=== PATIENT | male | born 1940 | race Caucasian/White ===

== ENCOUNTER 2019-08-23 11:48 | Inpatient (IN) | payer OTHER ==
[~2019-08-23] VITALS: Ht 167.6 cm; Wt 92.1 kg
--- NOTE | 2019-08-23 12:15 | NUR ---
PATIENT TO ER #1
--- NOTE | 2019-08-23 12:18 | NUR ---
pt arrives from home w/ c/o "feeling weird". Pt arrives from his Dr. office and was told to home to the ER for further evaluation.
[2019-08-23 12:21] VITALS: BP_SYST 150
--- NOTE | 2019-08-23 12:21 | NUR ---
ER at bedside examining patient.
--- NOTE | 2019-08-23 12:30 | NUR ---
# 20 gauge angiocath placed to RFA. Use of asceptic technique. Opsite placed over site. Blood return noted. Blood for lab drawn from site. Flushed with 10 cc of normal saline. No evidence of infiltration noted. Patient tolerated well.
[2019-08-23 12:48] LABS: BASOPHILS % (AUTO) 0.5 % (0.0-2.0); EOSINOPHILS # (AUTO) 0.1 K/uL (0.0-0.4); HEMOGLOBIN 15.1 g/dL (14.0-18.0); LYMPHOCYTES # (AUTO) 0.8 K/uL (1.0-5.5); LYMPHOCYTES % (AUTO) 11.8 % (20.5-51.5); MEAN CORPUSCULAR HEMOGLOBIN 32 pg (27-31); MEAN CORPUSCULAR HGB CONC 35 % (32-36); MEAN CORPUSCULAR VOLUME 91 fL (79.0-98.0); MONOCYTES # (AUTO) 0.6 K/uL (0.0-1.0); MONOCYTES % (AUTO) 8.1 % (1.7-9.3); NEUTROPHILS # (AUTO) 5.4 K/uL (1.8-7.7); NEUTROPHILS % (AUTO) 78.6 % (40.0-70.0); PLATELET COUNT (AUTO) 192 K/uL (130-430); RED CELL DISTRIBUTION WIDTH 13.7 % (9.0-15.0); WHITE BLOOD COUNT (AUTO) 6.8 K/uL (4.8-10.8)
--- NOTE | 2019-08-23 12:49 | NUR ---
Patient transported to radiology via gurney, accompanied by radiation oncology nurse.
[2019-08-23 12:51] LABS: ANION GAP 8 (5-15); CALCIUM 9.2 mg/dL (8.4-11.0); CHLORIDE 102 mmol/L (98-107); CREATININE 1.11 mg/dL (0.55-1.30); GLUCOSE 221 mg/dL (70-99); POTASSIUM 3.9 mmol/L (3.5-5.1); SODIUM SERUM 137 mmol/L (136-145); UREA NITROGEN, BLOOD 22 mg/dL (8-21)
[2019-08-23 12:55] LABS: PROTHROMBIN TIME 9.8 SECS (9.5-12.5)
[2019-08-23 12:59] LABS: ALANINE AMINOTRANSFERASE 18 U/L (12-78); ALBUMIN 3.6 g/dL (3.4-4.8); ASPARTATE AMINOTRANSFERASE 20 U/L (10-37)
[2019-08-23 13:03] LABS: BILIRUBIN,URINE NEGATIVE (NEGATIVE); BLOOD, URINE NEGATIVE (NEGATIVE); CLARITY/URINE CLEAR (CLEAR); COLOR,URINE YELLOW (YELLOW); GLUCOSE,URINE 2+ (NEGATIVE); KETONES,URINE NEGATIVE (NEGATIVE); LEUKOCYTE ESTERASE ,URINE NEGATIVE (NEGATIVE); NITRITE, URINE NEGATIVE (NEGATIVE); PH,URINE 5.5 (5.0-8.0); PROTEIN URINE TRACE (NEGATIVE); UROBILINOGEN,URINE 0.2 (0.2-1.0)
--- NOTE | 2019-08-23 13:08 | NUR ---
pt returned from CT scan
[2019-08-23 13:09] LABS: BACTERIA,URINE FEW /HPF (None Seen); RBC,URINE 0-3 /HPF (0-3); WBC,URINE 0-3 /HPF (0-3)
[2019-08-23] MEDS ORDERED: ASPIRIN 325 MG TABLET PO ONE (13:15)
--- NOTE | 2019-08-23 14:03 | NUR ---
pt will be admitted under the care of Dr. Allen. Orders received
--- NOTE | 2019-08-23 14:07 | NUR ---
SON TO BRING HOME MEDICATION LIST.
--- NOTE | 2019-08-23 14:14 | NUR ---
Patient will be admitted to care of Dr. Allen. Admitted to tele unit. Will go to room 111-b. Belongings list completed. Complete and up to date summary report printed. SBAR report to be given at bedside with opportunity for questions. bedside report to be given. IV is on the RFA 20g.
--- NOTE | 2019-08-23 14:24 | NUR ---
ADMISSION NOTE Received patient from ER via [facility], received report from Helena BRANDT. Patient admitted with diagnosis of TIA. Patient oriented to hospital routine, call light, toileting and safety-patient verbalized understanding.
[2019-08-23] MEDS: HYDROCHLOROTHIAZIDE 25 MG TABLET (HCTZ) PO SCH (14:30)
[2019-08-23] MEDS ORDERED: cloNIDine HCL 0.1 MG TABLET PO PRN (14:30)
[2019-08-23] MEDS ORDERED: ONDANSETRON HCL 4 MG/2 ML VIAL IVP PRN (14:30)
[2019-08-23] MEDS ORDERED: HYDROcodone/ACETAMIN 10-325 MG TAB PO PRN (14:30)
[2019-08-23] MEDS ORDERED: HYDROcodone/ACETAMIN 5-325 MG TAB (NORCO/ VICODIN) PO PRN (14:30)
[2019-08-23] MEDS ORDERED: ACETAMINOPHEN 325 MG TABLET PO PRN (14:30)
[2019-08-23] MEDS ORDERED: LORazepam 2 MG/ML VIAL IVP PRN (14:30)
[2019-08-23 14:39] VITALS: BP_SYST 141
--- NOTE | 2019-08-23 14:44 | NUR ---
CONSULTATION PAGED/CALLED Reason for Consultation: [] HTN Person Who was Notified: [] LAMAR Consulting Physician: [] DR Kalyn CHAPPELL Rn Surgery Icu Specialty: [] CARDIOLOGY Ordering Physician: [] DR Chanelle CHAPPELL
[2019-08-23 14:46] LABS: CHOLESTEROL 125 mg/dL (<200); HDL CHOLESTEROL 33 mg/dL (>45); LDL CHOLESTEROL 67 mg/dL (<100); TRIGLYCERIDES 118 mg/dL (30-150)
[2019-08-23 16:06] VITALS: BP_SYST 141
[2019-08-23] MEDS ORDERED: HYDROCHLOROTHIAZIDE 25 MG TABLET (HCTZ) PO ONE (16:15)
[2019-08-23 16:58] VITALS: BP_SYST 152
--- NOTE | 2019-08-23 17:30 | NUR ---
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
[2019-08-23] MEDS: INSULIN REGULAR, HUMAN 100 UNITS/ML, 10 ML VIAL (humuLIN R) SUBCUT PRN ×2 (17:45→22:14)
--- NOTE | 2019-08-23 19:01 | NUR ---
CLOSING NOTE: PATIENT IS STABLE, NO SIGN OF DISTRESS, TOLERATING DIET WELL.
--- NOTE | 2019-08-23 19:25 | NUR ---
OPENING NOTE/EDUCATION:SAFETY/REFUSED BED ALARM PATIENT IS RESTING IN BED, AWAKE, A/OX3, FAMILY AT BEDSIDE, EVEN AND UNLABORED BREATHING ON ROOM AIR, IV TO RIGHT FOREARM IS SALINE LOCKED, PATENT/BENIGN, NO COMPLAINTS OF PAIN AT THIS TIME. PATIENT REFUSED BED ALARM DESPITE BEING EDUCATED ON BENEFIT AND PURPOSE OF BED ALARM, WILL CONTINUE TO ENCOURAGE THROUGHOUT SHIFT, PATIENT EDUCATED ON PROPER USE OF CALL LIGHT SYSTEM, PATIENT VERBALIZED UNDERSTANDING AND DEMONSTRATED PROPER USE, PATIENT VERBALIZED HE WILL USE CALL LIGHT FOR ASSISTANCE OUT OF BED, BED LOCKED AND IN LOWEST POSITION, TWO SIDE RAILS UP, CALL LIGHT WITH PATIENT, WILL CONTINUE TO MONITOR.
[2019-08-23 20:00] VITALS: BP_SYST 127
--- NOTE | 2019-08-23 22:12 | NUR ---
BLOOD SUGAR PATIENT'S BLOOD SUGAR IS 367. 10 UNITS OF REGULAR INSULIN INDICATED PER INSULIN SLIDING SCALE. EDUCATED PATIENT ON MEDICATION USES AND POTENTIAL SIDE EFFECTS, PATIENT ABLE TO VERBALIZE UNDERSTANDING, ADMINISTERED MEDICATION PER MD ORDER, PATIENT TOLERATED WELL. SAFETY AND FALL PRECAUTIONS IN PLACE, CALL LIGHT WITH PATIENT, WILL CONTINUE TO MONITOR.
[2019-08-23] MEDS: NORMAL SALINE 5 ML DISP.SYRIN IVF SCH (22:15)
--- NOTE | 2019-08-24 00:16 | NUR ---
SPOKE WITH MD SPOKE WITH DR. GADIEL Torres OVER THE PHONE REGARDING PATIENT'S HOME MEDICATION, MD OKAYED TO CONTINUE HOME EYE DROPS AND PREGABALIN MEDICATIONS, VERIFIED AND CONFIRMED BY READ-BACK, RN TO INPUT.
[2019-08-24 00:19] VITALS: BP_SYST 139
--- NOTE | 2019-08-24 01:52 | NUR ---
CONSULTATION PAGED/CALLED Reason for Consultation: TIA Person Who was Notified:DMITRY Consulting Physician: YORDY Antique Refinisher Specialty: Ordering Physician: Chanelle CHAPPELL
--- NOTE | 2019-08-24 02:25 | NUR ---
RN ROUNDS PATIENT IS RESTING IN BED, EYES CLOSED, TOLERATING ROOM AIR, IV TO RIGHT FOREARM IS SALINE LOCKED, PATENT/BENIGN, NO COMPLAINTS OF PAIN. SAFETY AND FALL PRECAUTIONS IN PLACE, BED LOCKED AND IN LOWEST POSITION, TWO SIDE RAILS UP, CALL LIGHT WITH PATIENT, WILL CONTINUE TO MONITOR.
--- NOTE | 2019-08-24 04:15 | NUR ---
ASSISTED TO RESTROOM ASSISTED PATIENT TO RESTROOM AND BACK TO BED SAFELY, PATIENT VOIDED, REPORTED NO DIFFICULTY, STEADY GAIT, IV SALINE LOCKED INTACT. SAFETY AND FALL PRECAUTIONS IN PLACE, CALL LIGHT WITH PATIENT, WILL CONTINUE TO MONITOR.
[2019-08-24] MEDS: NORMAL SALINE 5 ML DISP.SYRIN IVF SCH ×3 (05:53→21:34)
--- NOTE | 2019-08-24 05:58 | NUR ---
BLOOD SUGAR PATIENT'S BLOOD SUGAR IS 80. NO INSULIN INDICATED PER INSULIN SLIDING SCALE. SAFETY AND FALL PRECAUTIONS IN PLACE, CALL LIGHT WITH PATIENT, WILL CONTINUE TO MONITOR.
--- NOTE | 2019-08-24 06:44 | NUR ---
CLOSING NOTE PATIENT IS RESTING IN BED, AWAKE AT TIMES FORGETFUL, TOLERATING ROOM AIR, IV TO RIGHT FOREARM IS SALINE LOCKED, PATENT/BENIGN, NO COMPLAINTS OF PAIN AT THIS TIME. PATIENT REFUSED BED ALARM DESPITE EDUCATION THROUGHOUT SHIFT, PATIENT HAS A STEADY GAIT. SAFETY AND FALL PRECAUTIONS IN PLACE, BED LOCKED AND IN LOWEST POSITION, TWO SIDE RAILS UP, CALL LIGHT WITH PATIENT, WILL ENDORSE CARE TO DAYSHIFT RN.
[2019-08-24 07:10] LABS: BASOPHILS % (AUTO) 0.6 % (0.0-2.0); EOSINOPHILS # (AUTO) 0.1 K/uL (0.0-0.4); EOSINOPHILS % (AUTO) 1.2 % (0.0-4.0); HEMATOCRIT 40.8 % (36-54); HEMOGLOBIN 14.1 g/dL (14.0-18.0); LYMPHOCYTES % (AUTO) 11.3 % (20.5-51.5); MEAN CORPUSCULAR HEMOGLOBIN 31 pg (27-31); MEAN CORPUSCULAR HGB CONC 35 % (32-36); MEAN CORPUSCULAR VOLUME 91 fL (79.0-98.0); MONOCYTES # (AUTO) 0.7 K/uL (0.0-1.0); MONOCYTES % (AUTO) 7.7 % (1.7-9.3); NEUTROPHILS # (AUTO) 6.7 K/uL (1.8-7.7); NEUTROPHILS % (AUTO) 79.2 % (40.0-70.0); PLATELET COUNT (AUTO) 222 K/uL (130-430); RED BLOOD CELL COUNT(AUTO) 4.49 MIL/uL (4.2-6.2); RED CELL DISTRIBUTION WIDTH 13.4 % (9.0-15.0); WHITE BLOOD COUNT (AUTO) 8.5 K/uL (4.8-10.8)
--- NOTE | 2019-08-24 07:15 | NUR ---
received patient aaox 4. vitals signs stable. afebrile. lungs bilaterally clear. abdomen soft and non distended. has right forearm saline lock #22. dry/intact. no sob nor pain noted. has eye patch on the right eye, s/p cataract surgery. bed low position, alarmed and locked. ambulatory. no dizziness nor headache noted. instructed to call for assistance.
[2019-08-24 07:29] LABS: ANION GAP 8 (5-15); CALCIUM 8.7 mg/dL (8.4-11.0); CHLORIDE 105 mmol/L (98-107); CREATININE 1.02 mg/dL (0.55-1.30); GLUCOSE 87 mg/dL (70-99); PHOSPHORUS 3.3 mg/dL (2.7-4.5); POTASSIUM 3.4 mmol/L (3.5-5.1); SODIUM SERUM 140 mmol/L (136-145); UREA NITROGEN, BLOOD 22 mg/dL (8-21)
[2019-08-24 08:21] VITALS: BP_SYST 127
[2019-08-24] MEDS: PREGABALIN 25 MG CAPSULE (LYRICA) PO SCH ×2 (08:30→21:32)
[2019-08-24] MEDS: HYDROCHLOROTHIAZIDE 25 MG TABLET (HCTZ) PO SCH (08:31)
[2019-08-24] MEDS: ASPIRIN 325 MG TABLET PO SCH (08:31)
--- NOTE | 2019-08-24 08:33 | NUR ---
meds due given. assists on adls
--- NOTE | 2019-08-24 10:03 | NUR ---
CONSULTATION PAGED/CALLED Reason for Consultation: TIA,HTN Person Who was Notified: FRANCA Consulting Physician: Etl Programmer Specialty: Ordering Physician:
[2019-08-24] MEDS ORDERED: GLUCOSE 15 GM GEL (in 37.5 GM TUBE) PO PRN (11:30)
[2019-08-24] MEDS ORDERED: D5W 1,000 ML IV PRN (11:30)
[2019-08-24] MEDS ORDERED: DEXTROSE 50%-WATER 50 ML DISP.SYRIN IVP PRN (11:30)
[2019-08-24 12:10] VITALS: BP_SYST 130
[2019-08-24] MEDS: OFLOXACIN 0.3% OP SCH ×2 (12:46→21:00)
[2019-08-24] MEDS: EYE OP SCH ×2 (12:46→21:00)
[2019-08-24] MEDS: PREDNISOLONE ACETATE 1% OP SCH ×3 (12:46→21:00)
--- NOTE | 2019-08-24 12:50 | NUR ---
eyedrops instilled to right eye as prescribed. complained of pain and redness noted.
[2019-08-24] MEDS: INSULIN REGULAR, HUMAN 100 UNITS/ML, 10 ML VIAL (humuLIN R) SUBCUT PRN ×3 (13:02→22:02)
--- NOTE | 2019-08-24 13:02 | NUR ---
latest bs 246 mg/dl. coverage given.
--- NOTE | 2019-08-24 15:19 | NUR ---
PER [facility] CHARGE NURSE DR SCALES AND DR SANCHEZ CAME AND EVALUATE THE PATIENT.
[2019-08-24 16:10] VITALS: BP_SYST 133
--- NOTE | 2019-08-24 16:10 | NUR ---
PATIENT AGREED TO STAY TILL TOMORROW TO DO CT SCAN OF THE BRAIN WITHOUT CONTRAST, PER DR TA SONG. RATHER THAN MRI WHICH CONTRAINDICATED PER DR SANCHEZ DUE STENT PREVIOUSLY.
--- NOTE | 2019-08-24 17:55 | NUR ---
latest bs 253 mg/dl. coverage given. eating dinner good. has eyedrop on right eye given.
--- NOTE | 2019-08-24 18:23 | NUR ---
still sitting on the bed and watching tv. no pain noted.
--- NOTE | 2019-08-24 19:16 | NUR ---
P.T. NOTES P.T. RONEY COMPLETED; PATIENT MAY AMBU AD REED W/ NURSE Addendum: 08/24/19 at 1917 by Mariah Carmen PT Amended: Links added.
--- NOTE | 2019-08-24 19:34 | NUR ---
endorsed to incoming nurse Lachelle BRANDT
[2019-08-24 20:00] VITALS: BP_SYST 127
--- NOTE | 2019-08-24 22:09 | NUR ---
Patient in bed. No acute distress noted. Patient refused evening eye drops. Will continue to monitor.
[2019-08-25 00:06] VITALS: BP_SYST 124
[2019-08-25] MEDS: NORMAL SALINE 5 ML DISP.SYRIN IVF SCH (05:14)
--- NOTE | 2019-08-25 05:34 | NUR ---
Current assessment unchanged. Will continue to monitor.
[2019-08-25 06:46] LABS: ANION GAP 8 (5-15); CALCIUM 8.7 mg/dL (8.4-11.0); CHLORIDE 101 mmol/L (98-107); CREATININE 1.27 mg/dL (0.55-1.30); GLUCOSE 146 mg/dL (70-99); POTASSIUM 3.5 mmol/L (3.5-5.1); SODIUM SERUM 136 mmol/L (136-145); UREA NITROGEN, BLOOD 25 mg/dL (8-21)
[2019-08-25 06:53] LABS: BASOPHILS % (AUTO) 0.5 % (0.0-2.0); EOSINOPHILS # (AUTO) 0.1 K/uL (0.0-0.4); EOSINOPHILS % (AUTO) 2.5 % (0.0-4.0); HEMOGLOBIN 12.9 g/dL (14.0-18.0); LYMPHOCYTES # (AUTO) 0.9 K/uL (1.0-5.5); LYMPHOCYTES % (AUTO) 17.1 % (20.5-51.5); MEAN CORPUSCULAR HEMOGLOBIN 32 pg (27-31); MEAN CORPUSCULAR HGB CONC 35 % (32-36); MEAN CORPUSCULAR VOLUME 91 fL (79.0-98.0); MONOCYTES # (AUTO) 0.5 K/uL (0.0-1.0); MONOCYTES % (AUTO) 8.9 % (1.7-9.3); NEUTROPHILS # (AUTO) 3.9 K/uL (1.8-7.7); PLATELET COUNT (AUTO) 191 K/uL (130-430); RED BLOOD CELL COUNT(AUTO) 4.09 MIL/uL (4.2-6.2); RED CELL DISTRIBUTION WIDTH 13.2 % (9.0-15.0); WHITE BLOOD COUNT (AUTO) 5.5 K/uL (4.8-10.8)
--- NOTE | 2019-08-25 07:15 | NUR ---
received patient aaox 4. vitals signs stable. afebrile. lungs bilaterally clear. abdomen soft and non distended. no sob nor pain noted. no dizzines noted. bed in low position, alarmed and locked. call lights within reach. will continue to monitor patients status. has iv access on the rt forearm #22. dry and patent.
--- NOTE | 2019-08-25 08:00 | NUR ---
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
[2019-08-25 08:24] VITALS: BP_SYST 117
--- NOTE | 2019-08-25 08:28 | NUR ---
PATIENT CAME BACK FROM RADIOLOGY FOR CT SCAN OF THE BRAIN WITHOUT CONTRAST. VITALS SIGNS STABLE. AFEBRILE. NO PAIN NO SOB NOTED.
[2019-08-25] MEDS: ASPIRIN 325 MG TABLET PO SCH (08:40)
[2019-08-25] MEDS: HYDROCHLOROTHIAZIDE 25 MG TABLET (HCTZ) PO SCH (08:41)
[2019-08-25] MEDS: PREGABALIN 25 MG CAPSULE (LYRICA) PO SCH (08:41)
--- NOTE | 2019-08-25 09:15 | NUR ---
dr zelaya came and said ok to be discharge, if okay with dr henderson.
--- NOTE | 2019-08-25 09:15 | NUR ---
MEDICATION GIVEN. MADE COMFORTABLE.
--- NOTE | 2019-08-25 09:59 | NUR ---
PATIENT SLEEPING AND RESTING.
[2019-08-25] MEDS: INSULIN REGULAR, HUMAN 100 UNITS/ML, 10 ML VIAL (humuLIN R) SUBCUT PRN (11:11)
[2019-08-25] MEDS: PREDNISOLONE ACETATE 1% OP SCH (11:13)
[2019-08-25] MEDS: OFLOXACIN 0.3% OP SCH (11:14)
[2019-08-25] MEDS: EYE OP SCH (11:14)
--- NOTE | 2019-08-25 11:37 | NUR ---
latest bs 316 mg/dl. coverage given. has other medication due given.
[2019-08-25 12:10] VITALS: BP_SYST 127
--- NOTE | 2019-08-25 12:46 | NUR ---
DR CHAPPELL CAME AND MADE ORDERS TO DISCHARGE TODAY.
[2019-08-25 13:54] VITALS: BP_SYST 118
--- NOTE | 2019-08-25 14:15 | NUR ---
PATIENT LEFT IN STABLE CONDITION VIA WHEELCHAIR AND ACCOMPANIED BY RANDALL BRANDT AND SON. ALL BELONGINGS SENT WITH THE PATIENT, INCLUDING EYEDROPS X 2. . 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 [facility] I D BAND REMOVED AND IV ACCESS REMOVED TOO. DISCHARGE INSTRUCTIONS GIVEN AND SIGNED BY THE PATIENT. RETURN FOLLOW UP WITH PCP IN ONE WEEK AND CONTINUE PREVIOUS MEDICATION.
== END 2019-08-25 14:15 | disposition home or self-care (01) | DRG 69 ==
LOC: SED 11:48 → STU 13:57
PROVIDERS: ADMIT Preventive Medicine Preventive Medicine/Occupational Environmental Medicine; ATTEND Preventive Medicine Preventive Medicine/Occupational Environmental Medicine
DX: G45.9 Transient cerebral ischemic attack, unspecified (principal); E11.9 Type 2 diabetes mellitus without complications; I25.10 Atherosclerotic heart disease of native coronary artery without angina pectoris; E78.00 Pure hypercholesterolemia, unspecified; E87.6 Hypokalemia; F40.240 Claustrophobia; I10 Essential (primary) hypertension; R79.89 Other specified abnormal findings of blood chemistry; Z98.41 Cataract extraction status, right eye; Z95.5 Presence of coronary angioplasty implant and graft
CPT/HCPCS: 36415; 70450-TC; 71045; 80048; 80053; 80061; 81000-TC; 82962; 83735-TC; 84100-TC; 84484; 85025; 85610-TC; 85730-TC; 93005; 93306; 93880; 99285; G0378; J1815

== ENCOUNTER 2023-06-23 10:04 | Emergency (ER) | payer OTHER, MEDICARE ==
[~2023-06-23] VITALS: Ht 172.7 cm; Wt 79.4 kg
[2023-06-23 10:26] VITALS: BP_SYST 130; PULSE 113; RESP 16; TEMP 98; O2SAT 97
[2023-06-23] MEDS ORDERED: TRANEXAMIC ACID 1,000 MG/10 ML VIAL IV ONE (11:00)
[2023-06-23] MEDS ORDERED: CEPH-548 PO (11:00)
[2023-06-23 11:49] VITALS: BP_SYST 130; PULSE 113; RESP 16; TEMP 98; O2SAT 97
== END 2023-06-23 11:51 | disposition home or self-care (01) ==
LOC: SED 10:04
DX: R04.0 Epistaxis (principal); E11.9 Type 2 diabetes mellitus without complications; I10 Essential (primary) hypertension; Z79.899 Other long term (current) drug therapy
CPT/HCPCS: 99284; 96374; 30901; J3490

== ENCOUNTER 2023-07-12 14:07 | Inpatient (IN) | payer OTHER, MEDICARE ==
[~2023-07-12] VITALS: Ht 167.6 cm; Wt 92.5 kg
[~2023-07-12 14:07] MED LIST: CEPH-548 PO
[2023-07-12 14:10] VITALS: BP_SYST 137; PULSE 66; RESP 18; TEMP 97.6; O2SAT 94
[2023-07-12 15:10] LABS: BASOPHILS % (AUTO) 0.3 % (0.0-2.0); EOSINOPHILS # (AUTO) 0.1 K/uL (0.0-0.4); EOSINOPHILS % (AUTO) 0.7 % (0.0-4.0); HEMATOCRIT 36.8 % (36-54); HEMOGLOBIN 12.3 g/dL (14.0-18.0); LYMPHOCYTES # (AUTO) 0.4 K/uL (1.0-5.5); MEAN CORPUSCULAR HEMOGLOBIN 30 pg (27-31); MEAN CORPUSCULAR HGB CONC 34 % (32-36); MEAN CORPUSCULAR VOLUME 88 fL (79.0-98.0); MONOCYTES # (AUTO) 0.7 K/uL (0.0-1.0); NEUTROPHILS # (AUTO) 13.3 K/uL (1.8-7.7); PLATELET COUNT (AUTO) 279 K/uL (130-430); RED BLOOD CELL COUNT(AUTO) 4.16 MIL/uL (4.2-6.2); RED CELL DISTRIBUTION WIDTH 14.7 % (9.0-15.0); WHITE BLOOD COUNT (AUTO) 14.7 K/uL (4.8-10.8)
[2023-07-12 15:22] LABS: ANION GAP 7 (5-15); CALCIUM 9.1 mg/dL (8.4-11.0); CARBON DIOXIDE 28 mmol/L (23-29); CHLORIDE 106 mmol/L (98-107); CREATININE 1.62 mg/dL (0.55-1.30); GLUCOSE 188 mg/dL (74-106); POTASSIUM 4.9 mmol/L (3.5-5.1); SODIUM SERUM 141 mmol/L (136-145); UREA NITROGEN, BLOOD 29 mg/dL (8-21)
[2023-07-12 15:27] LABS: ALANINE AMINOTRANSFERASE 34 U/L (12-78); ALBUMIN 3.2 g/dL (3.4-4.8); ASPARTATE AMINOTRANSFERASE 24 U/L (10-37); BILIRUBIN,DIRECT 0.2 mg/dL (0.0-0.3); CHOLESTEROL 83 mg/dL (<200); HDL CHOLESTEROL 33 mg/dL (>45); TOTAL BILIRUBIN 0.7 mg/dL (0.0-1.0); TOTAL PROTEIN, SERUM 7.8 g/dL (6.4-8.3); TRIGLYCERIDES 81 mg/dL (30-150)
[2023-07-12] MEDS: IPRATROPIUM/ALBUTEROL SULFATE 3 ML AMPUL.NEB (DUONEB) INH ONE ×2 (15:30→18:06)
[2023-07-12 15:46] LABS: INR 1.1 (0.80-1.20)
[2023-07-12 16:53] LABS: HEMOGLOBIN A1C 7.03 % (<5.7)
[2023-07-12] MEDS: NACL 0.9% 1,000 ML IV ONE (17:32)
[2023-07-12] MEDS: cefTRIAXone 1 GM IVPB PREMIX 50 ML IV ONE (17:37)
[2023-07-12 17:46] LABS: COVID19 ANTIGEN SOFIA FIA NEGATIVE (NEGATIVE); INFLUENZA TYPE A Negative (NEGATIVE); INFLUENZA TYPE B NEGATIVE (NEGATIVE)
[2023-07-12] MEDS ORDERED: AZITHROMYCIN 500 MG/VIAL (ZITHROMAX) IV ONE ×2 (19:01→19:07)
[2023-07-12] MEDS: AZITHROMYCIN 500 MG in NS 250 ML IV ONE (19:10)
[2023-07-12] MEDS: LORazepam 2 MG/ML VIAL IVP ONE (19:11)
[2023-07-12 19:45] LABS: BLOOD GAS PCO2 29.4 mmHg (32.0-45.0); BLOOD GAS PH 7.425 (7.350-7.450)
[2023-07-12 19:46] LABS: ABG O2 SAT% ESTIMATE 79.9 % (94.0-100.0); ALLEN'S TEST POSITIVE (P); BLOOD GAS BASE EXCESS -4.1 mmol/L (-3.0-3.0); BLOOD GAS HCO3 18.9 mmol/L (21.0-27.0); BLOOD GAS PO2 42.2 mmHg (75.0-100.0)
[2023-07-12] MEDS ORDERED: HYDROcodone/ACETAMIN 5-325 MG TAB (NORCO/ VICODIN) PO PRN (21:45)
[2023-07-12] MEDS ORDERED: HYDROcodone/ACETAMIN 10-325 MG TAB PO PRN (21:45)
[2023-07-12] MEDS ORDERED: NALOXONE HCL 0.4 MG/ML AMP (NARCAN) IVP PRN ×2 (21:45)
[2023-07-12] MEDS ORDERED: ACETAMINOPHEN 325 MG TABLET PO PRN (21:45)
[2023-07-12 23:29] VITALS: BP_SYST 137; PULSE 90; O2SAT 99
[2023-07-12 23:33] VITALS: PULSE 98
[2023-07-12] MEDS: IPRATROPIUM BROM 0.5 MG/2.5 ML VIAL.NEB (ATROVENT) INH SCH (23:41)
[2023-07-12] MEDS: ALBUTEROL SULFATE 0.083% 2.5 MG/3 ML VIAL.NEB INH SCH (23:41)
[2023-07-13] VITALS (26 sets, daily range): BP systolic 82–131; PULSE 73–106; RESP 16–27; TEMP 97–97.7; O2SAT 95–100
[2023-07-13 04:58] LABS: BASOPHILS % (AUTO) 0.1 % (0.0-2.0); HEMATOCRIT 32.6 % (36-54); HEMOGLOBIN 10.8 g/dL (14.0-18.0); LYMPHOCYTES # (AUTO) 0.5 K/uL (1.0-5.5); MEAN CORPUSCULAR HEMOGLOBIN 29 pg (27-31); MEAN CORPUSCULAR HGB CONC 33 % (32-36); MEAN CORPUSCULAR VOLUME 88 fL (79.0-98.0); NEUTROPHILS # (AUTO) 14.9 K/uL (1.8-7.7); NEUTROPHILS % (AUTO) 90.9 % (40.0-70.0); PLATELET COUNT (AUTO) 238 K/uL (130-430); RED CELL DISTRIBUTION WIDTH 14.7 % (9.0-15.0); WHITE BLOOD COUNT (AUTO) 16.4 K/uL (4.8-10.8)
[2023-07-13 05:07] LABS: ANION GAP 10 (5-15); CALCIUM 7.7 mg/dL (8.4-11.0); CARBON DIOXIDE 21 mmol/L (23-29); CHLORIDE 107 mmol/L (98-107); CREATININE 1.84 mg/dL (0.55-1.30); GLUCOSE 207 mg/dL (74-106); PHOSPHORUS 4.2 mg/dL (2.7-4.5); SODIUM SERUM 138 mmol/L (136-145); UREA NITROGEN, BLOOD 36 mg/dL (8-21)
[2023-07-13] MEDS ORDERED: DEXTROSE 50% JECT 50 ML DISP.SYRIN ONE (06:24)
[2023-07-13] MEDS ORDERED: INSULIN REGULAR, HUMAN 10 UNITS/0.1 ML, 3 ML VIAL ONE (06:25)
[2023-07-13] MEDS ORDERED: SODIUM POLYSTYRENE SULFONATE 15 GM/60 ML UDBTL ONE (06:27)
[2023-07-13] MEDS: DEXTROSE 50% JECT 50 ML DISP.SYRIN IVP ONE (06:28)
[2023-07-13] MEDS: INSULIN REGULAR, HUMAN 100 UNITS/ML, 3 ML VIAL IVP ONE (06:35)
[2023-07-13] MEDS: SODIUM POLYSTYRENE SULFONATE 15 GM/60 ML UDBTL RC ONE (06:36)
[2023-07-13] MEDS: NORMAL SALINE 5 ML DISP.SYRIN IVF SCH (06:59)
[2023-07-13 08:50] LABS: BLOOD GAS PCO2 27.1 mmHg (32.0-45.0); BLOOD GAS PH 7.492 (7.350-7.450); BLOOD GAS PO2 132.6 mmHg (75.0-100.0)
[2023-07-13 08:51] LABS: ABG O2 SAT% ESTIMATE 98.9 % (94.0-100.0); ALLEN'S TEST POSITIVE (P); BLOOD GAS BASE EXCESS -1.5 mmol/L (-3.0-3.0); BLOOD GAS HCO3 20.3 mmol/L (21.0-27.0)
[2023-07-13] MEDS ORDERED: INSU100I24 SUBCUT (08:52)
[2023-07-13] MEDS ORDERED: SPIR25TA6 PO (08:52)
[2023-07-13] MEDS ORDERED: AMLO5TAB92 PO (08:52)
[2023-07-13] MEDS ORDERED: LOSA100T24 PO (08:52)
[2023-07-13] MEDS ORDERED: ATOR20TA64 PO (08:52)
[2023-07-13] MEDS ORDERED: NEU300 PO (08:52)
[2023-07-13] MEDS ORDERED: METO-542 PO (08:52)
[2023-07-13] MEDS ORDERED: TAMS0.4C96 PO (08:52)
[2023-07-13] MEDS ORDERED: LACT10SO6 (08:52)
[2023-07-13 09:21] LABS: ANION GAP 9 (5-15); CALCIUM 8.2 mg/dL (8.4-11.0); CARBON DIOXIDE 22 mmol/L (23-29); CHLORIDE 107 mmol/L (98-107); CREATININE 2.12 mg/dL (0.55-1.30); GLUCOSE 122 mg/dL (74-106); POTASSIUM 5.2 mmol/L (3.5-5.1); SODIUM SERUM 138 mmol/L (136-145); UREA NITROGEN, BLOOD 39 mg/dL (8-21)
[2023-07-13] MEDS ORDERED: ACETAMINOPHEN 325 MG TABLET PO PRN (15:30)
[2023-07-13] MEDS: cefTRIAXone 1 GM IVPB PREMIX 50 ML IV SCH (17:13)
[2023-07-13] MEDS: LORazepam 2 MG/ML VIAL IVP PRN (17:59)
[2023-07-13] MEDS: AZITHROMYCIN 500 MG in NS 250 ML IV SCH (19:00)
[2023-07-13 20:07] LABS: ANION GAP 9 (5-15); CALCIUM 8.4 mg/dL (8.4-11.0); CARBON DIOXIDE 21 mmol/L (23-29); CHLORIDE 108 mmol/L (98-107); CREATININE 2.01 mg/dL (0.55-1.30); GLUCOSE 139 mg/dL (74-106); POTASSIUM 4.9 mmol/L (3.5-5.1); SODIUM SERUM 138 mmol/L (136-145); UREA NITROGEN, BLOOD 43 mg/dL (8-21)
[2023-07-14] VITALS (35 sets, daily range): BP systolic 84–132; PULSE 69–107; RESP 14–22; TEMP 97.5–98.2; O2SAT 91–100
[2023-07-14] MEDS: NACL 0.9% 1,000 ML IV SCH (01:23)
[2023-07-14 05:25] LABS: ERYTHROCYTE SEDIMENTATION RATE 30 MM/HR (0-15)
[2023-07-14 05:27] LABS: BASOPHILS % (AUTO) 0.4 % (0.0-2.0); EOSINOPHILS % (AUTO) 0.1 % (0.0-4.0); HEMATOCRIT 32.3 % (36-54); HEMOGLOBIN 10.5 g/dL (14.0-18.0); LYMPHOCYTES # (AUTO) 0.5 K/uL (1.0-5.5); LYMPHOCYTES % (AUTO) 4.4 % (20.5-51.5); MEAN CORPUSCULAR HEMOGLOBIN 29 pg (27-31); MEAN CORPUSCULAR HGB CONC 33 % (32-36); MEAN CORPUSCULAR VOLUME 88 fL (79.0-98.0); MONOCYTES % (AUTO) 8.6 % (1.7-9.3); NEUTROPHILS # (AUTO) 9.6 K/uL (1.8-7.7); NEUTROPHILS % (AUTO) 86.5 % (40.0-70.0); PLATELET COUNT (AUTO) 207 K/uL (130-430); RED BLOOD CELL COUNT(AUTO) 3.67 MIL/uL (4.2-6.2); WHITE BLOOD COUNT (AUTO) 11.1 K/uL (4.8-10.8)
[2023-07-14 05:45] LABS: ALANINE AMINOTRANSFERASE 87 U/L (12-78); ALBUMIN 2.4 g/dL (3.4-4.8); ANION GAP 10 (5-15); ASPARTATE AMINOTRANSFERASE 77 U/L (10-37); CALCIUM 8.1 mg/dL (8.4-11.0); CARBON DIOXIDE 21 mmol/L (23-29); CHLORIDE 107 mmol/L (98-107); CREATININE 2.44 mg/dL (0.55-1.30); GLUCOSE 123 mg/dL (74-106); PHOSPHORUS 5.4 mg/dL (2.7-4.5); SODIUM SERUM 138 mmol/L (136-145); TOTAL BILIRUBIN 0.4 mg/dL (0.0-1.0); TOTAL PROTEIN, SERUM 6.4 g/dL (6.4-8.3); UREA NITROGEN, BLOOD 49 mg/dL (8-21)
[2023-07-14 06:29] LABS: POTASSIUM 6.2 mmol/L (3.5-5.1)
[2023-07-14] MEDS: ASPIRIN 81 MG TAB.CHEW PO SCH (09:00)
[2023-07-14] MEDS: ATORVASTATIN 20 MG TABLET PO SCH (09:00)
[2023-07-14 09:39] LABS: ABG O2 SAT% ESTIMATE 95.5 % (94.0-100.0); BLOOD GAS PCO2 40.5 mmHg (32.0-45.0); BLOOD GAS PO2 86.9 mmHg (75.0-100.0)
[2023-07-14 09:43] LABS: ALLEN'S TEST POSITIVE (P); BLOOD GAS BASE EXCESS -7.8 mmol/L (-3.0-3.0); BLOOD GAS HCO3 18.5 mmol/L (21.0-27.0); BLOOD GAS PH 7.278 (7.350-7.450)
[2023-07-14] MEDS: INSULIN REGULAR, HUMAN 10 UNITS/0.1 ML, 3 ML VIAL IVP ONE (09:44)
[2023-07-14] MEDS: DEXTROSE 50% JECT 50 ML DISP.SYRIN IVP ONE (09:44)
[2023-07-14] MEDS: SODIUM POLYSTYRENE SULFONATE 15 GM/60 ML UDBTL RC ONE (10:06)
[2023-07-14] MEDS: BUMEX 1 MG/4 ML VIAL IVP ONE (11:30)
[2023-07-14] MEDS ORDERED: NOREPINEPHR 8 MG/250 mL NS 250 ML IV PRN (14:45)
[2023-07-14] MEDS: BUMEX 1 MG/4 ML VIAL IVP SCH (21:26)
[2023-07-15] VITALS (29 sets, daily range): BP systolic 116–155; PULSE 91–115; RESP 16–39; TEMP 96.5–98.3; O2SAT 87–100
[2023-07-15 06:49] LABS: ERYTHROCYTE SEDIMENTATION RATE 40 MM/HR (0-15)
[2023-07-15 06:57] LABS: ANION GAP 11 (5-15); CALCIUM 8.8 mg/dL (8.4-11.0); CARBON DIOXIDE 25 mmol/L (23-29); CHLORIDE 108 mmol/L (98-107); CREATININE 2.16 mg/dL (0.55-1.30); GLUCOSE 128 mg/dL (74-106); PHOSPHORUS 4.6 mg/dL (2.7-4.5); POTASSIUM 4.3 mmol/L (3.5-5.1); SODIUM SERUM 144 mmol/L (136-145); UREA NITROGEN, BLOOD 50 mg/dL (8-21)
[2023-07-15 07:00] LABS: BASOPHILS % (AUTO) 0.3 % (0.0-2.0); EOSINOPHILS # (AUTO) 0.1 K/uL (0.0-0.4); EOSINOPHILS % (AUTO) 0.9 % (0.0-4.0); HEMATOCRIT 36.5 % (36-54); HEMOGLOBIN 12.2 g/dL (14.0-18.0); LYMPHOCYTES # (AUTO) 0.4 K/uL (1.0-5.5); LYMPHOCYTES % (AUTO) 3.5 % (20.5-51.5); MEAN CORPUSCULAR HEMOGLOBIN 30 pg (27-31); MEAN CORPUSCULAR HGB CONC 33 % (32-36); MEAN CORPUSCULAR VOLUME 89 fL (79.0-98.0); MONOCYTES # (AUTO) 0.8 K/uL (0.0-1.0); MONOCYTES % (AUTO) 6.5 % (1.7-9.3); NEUTROPHILS # (AUTO) 10.9 K/uL (1.8-7.7); NEUTROPHILS % (AUTO) 88.8 % (40.0-70.0); PLATELET COUNT (AUTO) 253 K/uL (130-430); RED BLOOD CELL COUNT(AUTO) 4.12 MIL/uL (4.2-6.2); RED CELL DISTRIBUTION WIDTH 15.1 % (9.0-15.0); WHITE BLOOD COUNT (AUTO) 12.3 K/uL (4.8-10.8)
[2023-07-15] MEDS: NACL 0.9% 1,000 ML IV SCH (14:53)
[2023-07-15] MEDS: DOXYCYCLINE HYCLATE 100 MG in D5W 100 ML IV SCH (20:35)
[2023-07-15] MEDS: MUPIROCIN 1 GM OIN.PF.APP NS SCH (20:35)
[2023-07-16] VITALS (28 sets, daily range): BP systolic 124–176; PULSE 98–134; RESP 13–26; TEMP 97–97.8; O2SAT 88–100
[2023-07-16] MEDS: ONDANSETRON HCL 4 MG/2 ML VIAL IVP PRN (01:16)
[2023-07-16 06:24] LABS: ERYTHROCYTE SEDIMENTATION RATE 35 MM/HR (0-15)
[2023-07-16 06:36] LABS: BASOPHILS % (AUTO) 0.3 % (0.0-2.0); EOSINOPHILS # (AUTO) 0.1 K/uL (0.0-0.4); EOSINOPHILS % (AUTO) 1.6 % (0.0-4.0); HEMATOCRIT 34.1 % (36-54); HEMOGLOBIN 11.6 g/dL (14.0-18.0); LYMPHOCYTES # (AUTO) 0.3 K/uL (1.0-5.5); LYMPHOCYTES % (AUTO) 4.2 % (20.5-51.5); MEAN CORPUSCULAR HEMOGLOBIN 30 pg (27-31); MEAN CORPUSCULAR HGB CONC 34 % (32-36); MEAN CORPUSCULAR VOLUME 86 fL (79.0-98.0); MONOCYTES # (AUTO) 0.7 K/uL (0.0-1.0); MONOCYTES % (AUTO) 9.5 % (1.7-9.3); NEUTROPHILS # (AUTO) 6.1 K/uL (1.8-7.7); NEUTROPHILS % (AUTO) 84.4 % (40.0-70.0); PLATELET COUNT (AUTO) 247 K/uL (130-430); RED BLOOD CELL COUNT(AUTO) 3.95 MIL/uL (4.2-6.2); RED CELL DISTRIBUTION WIDTH 14.6 % (9.0-15.0); WHITE BLOOD COUNT (AUTO) 7.3 K/uL (4.8-10.8)
[2023-07-16 06:37] LABS: ANION GAP 11 (5-15); CALCIUM 8.4 mg/dL (8.4-11.0); CARBON DIOXIDE 27 mmol/L (23-29); CHLORIDE 109 mmol/L (98-107); CREATININE 1.48 mg/dL (0.55-1.30); GLUCOSE 109 mg/dL (74-106); PHOSPHORUS 3.8 mg/dL (2.7-4.5); POTASSIUM 3.3 mmol/L (3.5-5.1); SODIUM SERUM 147 mmol/L (136-145); UREA NITROGEN, BLOOD 34 mg/dL (8-21)
[2023-07-16] MEDS ORDERED: POTASSIUM CHLORIDE 20 MEQ/PKT PACKET PO ONE (08:45)
[2023-07-16] MEDS ORDERED: KCL 40 mEq in 100 mL (PREMIX) 100 ML IV ONE (09:00)
[2023-07-16] MEDS ORDERED: QUEtiapine FUMARATE 25 MG TABLET PO SCH (09:00)
[2023-07-16] MEDS: MUPIROCIN 2% TOPICAL OINTMENT 22 GM TP SCH (09:07)
[2023-07-16] MEDS: POTASSIUM CHLORIDE 20 mEq in 100 mL (PREMIX) 100 ML x 2 doses IV SCH (09:47)
[2023-07-16 10:09] LABS: INR 1.1 (0.80-1.20); PROTHROMBIN TIME 11.8 SECS (9.5-12.5)
[2023-07-16] MEDS: METOPROLOL TARTRATE 5 MG/5 ML VIAL IVP ONE (10:59)
[2023-07-16] MEDS: AMIODARONE HCL 150 MG in D5W 100 ML IV ONE (13:15)
[2023-07-16] MEDS: AMIODARONE HCL 450 MG in D5W 241 ML IV SCH (13:32)
[2023-07-16] MEDS ORDERED: TPN PERIPHERAL 0.0001 ML, MVI 5 ML, TRACE ELEMENTS 1 ML in PARENTERAL AMINO ACID 8.5 % ... IV SCH (21:00)
[2023-07-16] MEDS ORDERED: *PPN PER PHARMACY XX PRN (21:00)
[2023-07-16] MEDS: MVI IV SCH (23:43)
[2023-07-16] MEDS: [UNRECOGNIZED DRUG - OTHER] IV SCH (23:43)
[2023-07-16] MEDS: TRACE ELEMENTS IV SCH (23:43)
[2023-07-16] MEDS: K PHOS IV SCH (23:43)
[2023-07-16] MEDS: TPN PERIPHERAL IV SCH (23:43)
[2023-07-17] VITALS (22 sets, daily range): BP systolic 125–163; PULSE 98–119; RESP 16–25; TEMP 96.9–98.3; O2SAT 88–99
[2023-07-17] MEDS: INSULIN REGULAR, HUMAN 100 UNITS/ML, 3 ML VIAL (humuLIN R) SUBCUT PRN (00:52)
[2023-07-17 05:02] LABS: ERYTHROCYTE SEDIMENTATION RATE 37 MM/HR (0-15)
[2023-07-17 05:13] LABS: BASOPHILS % (AUTO) 0.4 % (0.0-2.0); EOSINOPHILS # (AUTO) 0.1 K/uL (0.0-0.4); EOSINOPHILS % (AUTO) 1.2 % (0.0-4.0); HEMATOCRIT 33.7 % (36-54); HEMOGLOBIN 11.2 g/dL (14.0-18.0); LYMPHOCYTES # (AUTO) 0.3 K/uL (1.0-5.5); LYMPHOCYTES % (AUTO) 3.6 % (20.5-51.5); MEAN CORPUSCULAR HEMOGLOBIN 29 pg (27-31); MEAN CORPUSCULAR HGB CONC 33 % (32-36); MEAN CORPUSCULAR VOLUME 87 fL (79.0-98.0); MONOCYTES # (AUTO) 0.6 K/uL (0.0-1.0); MONOCYTES % (AUTO) 8.5 % (1.7-9.3); NEUTROPHILS # (AUTO) 6.3 K/uL (1.8-7.7); NEUTROPHILS % (AUTO) 86.3 % (40.0-70.0); PLATELET COUNT (AUTO) 248 K/uL (130-430); RED BLOOD CELL COUNT(AUTO) 3.87 MIL/uL (4.2-6.2); RED CELL DISTRIBUTION WIDTH 14.6 % (9.0-15.0); WHITE BLOOD COUNT (AUTO) 7.3 K/uL (4.8-10.8)
[2023-07-17 05:25] LABS: ALANINE AMINOTRANSFERASE 40 U/L (12-78); ALBUMIN 2.6 g/dL (3.4-4.8); ANION GAP 11 (5-15); ASPARTATE AMINOTRANSFERASE 29 U/L (10-37); CALCIUM 8.5 mg/dL (8.4-11.0); CARBON DIOXIDE 26 mmol/L (23-29); CHLORIDE 109 mmol/L (98-107); CREATININE 1.31 mg/dL (0.55-1.30); GLUCOSE 177 mg/dL (74-106); PHOSPHORUS 2.2 mg/dL (2.7-4.5); POTASSIUM 3.4 mmol/L (3.5-5.1); SODIUM SERUM 146 mmol/L (136-145); TOTAL BILIRUBIN 0.7 mg/dL (0.0-1.0); TOTAL PROTEIN, SERUM 6.6 g/dL (6.4-8.3); TRIGLYCERIDES 59 mg/dL (30-150); UREA NITROGEN, BLOOD 27 mg/dL (8-21)
[2023-07-17] MEDS: BUMEX 1 MG/4 ML VIAL IVP SCH (09:00)
[2023-07-17] MEDS: K PHOS 15 MM in NS 250 ML IV ONE (10:28)
[2023-07-17] MEDS: K PHOS IV SCH (22:24)
[2023-07-17] MEDS: [UNRECOGNIZED DRUG - OTHER] IV SCH (22:24)
[2023-07-17] MEDS: TPN PERIPHERAL IV SCH (22:24)
[2023-07-17] MEDS: POTASSIUM CHLORIDE IV SCH (22:24)
[2023-07-18] VITALS (29 sets, daily range): BP systolic 117–160; PULSE 92–116; RESP 16–31; TEMP 96.5–98.2; O2SAT 92–99
[2023-07-18 05:03] LABS: ERYTHROCYTE SEDIMENTATION RATE 18 MM/HR (0-15)
[2023-07-18 05:14] LABS: BASOPHILS % (AUTO) 0.4 % (0.0-2.0); EOSINOPHILS # (AUTO) 0.1 K/uL (0.0-0.4); EOSINOPHILS % (AUTO) 2.1 % (0.0-4.0); HEMATOCRIT 31.7 % (36-54); HEMOGLOBIN 10.5 g/dL (14.0-18.0); LYMPHOCYTES # (AUTO) 0.3 K/uL (1.0-5.5); LYMPHOCYTES % (AUTO) 6.3 % (20.5-51.5); MEAN CORPUSCULAR HEMOGLOBIN 29 pg (27-31); MEAN CORPUSCULAR HGB CONC 33 % (32-36); MEAN CORPUSCULAR VOLUME 87 fL (79.0-98.0); MONOCYTES # (AUTO) 0.5 K/uL (0.0-1.0); MONOCYTES % (AUTO) 9.3 % (1.7-9.3); NEUTROPHILS # (AUTO) 4.5 K/uL (1.8-7.7); NEUTROPHILS % (AUTO) 81.9 % (40.0-70.0); PLATELET COUNT (AUTO) 214 K/uL (130-430); RED BLOOD CELL COUNT(AUTO) 3.66 MIL/uL (4.2-6.2); RED CELL DISTRIBUTION WIDTH 14.7 % (9.0-15.0); WHITE BLOOD COUNT (AUTO) 5.5 K/uL (4.8-10.8)
[2023-07-18 05:59] LABS: ALANINE AMINOTRANSFERASE 27 U/L (12-78); ALBUMIN 2.3 g/dL (3.4-4.8); ANION GAP 9 (5-15); ASPARTATE AMINOTRANSFERASE 24 U/L (10-37); CALCIUM 8.1 mg/dL (8.4-11.0); CARBON DIOXIDE 29 mmol/L (23-29); CHLORIDE 108 mmol/L (98-107); CREATININE 1.14 mg/dL (0.55-1.30); GLUCOSE 174 mg/dL (74-106); PHOSPHORUS 2.1 mg/dL (2.7-4.5); SODIUM SERUM 146 mmol/L (136-145); TOTAL BILIRUBIN 0.6 mg/dL (0.0-1.0); TOTAL PROTEIN, SERUM 6.3 g/dL (6.4-8.3); UREA NITROGEN, BLOOD 19 mg/dL (8-21)
[2023-07-18] MEDS: CALCIUM GLUC 2 GM/100ML-NACL 100 ML IV ONE (11:26)
[2023-07-18] MEDS: K PHOS 15 MM in NS 250 ML IV ONE (13:31)
[2023-07-18] MEDS: K PHOS IV SCH (20:30)
[2023-07-18] MEDS: TPN PERIPHERAL IV SCH (20:30)
[2023-07-18] MEDS: POTASSIUM CHLORIDE IV SCH (20:30)
[2023-07-18] MEDS: [UNRECOGNIZED DRUG - OTHER] IV SCH (20:30)
[2023-07-19] VITALS (29 sets, daily range): BP systolic 112–157; PULSE 73–133; RESP 15–30; TEMP 97.6–98.8; O2SAT 25–98
[2023-07-19 05:01] LABS: BASOPHILS % (AUTO) 0.6 % (0.0-2.0); EOSINOPHILS # (AUTO) 0.2 K/uL (0.0-0.4); EOSINOPHILS % (AUTO) 2.7 % (0.0-4.0); HEMATOCRIT 34.4 % (36-54); HEMOGLOBIN 11.5 g/dL (14.0-18.0); LYMPHOCYTES # (AUTO) 0.5 K/uL (1.0-5.5); LYMPHOCYTES % (AUTO) 6.5 % (20.5-51.5); MEAN CORPUSCULAR HEMOGLOBIN 29 pg (27-31); MEAN CORPUSCULAR HGB CONC 34 % (32-36); MEAN CORPUSCULAR VOLUME 87 fL (79.0-98.0); MONOCYTES # (AUTO) 0.6 K/uL (0.0-1.0); MONOCYTES % (AUTO) 8.7 % (1.7-9.3); NEUTROPHILS # (AUTO) 5.7 K/uL (1.8-7.7); NEUTROPHILS % (AUTO) 81.5 % (40.0-70.0); PLATELET COUNT (AUTO) 268 K/uL (130-430); RED BLOOD CELL COUNT(AUTO) 3.96 MIL/uL (4.2-6.2); RED CELL DISTRIBUTION WIDTH 14.1 % (9.0-15.0)
[2023-07-19 05:12] LABS: ALANINE AMINOTRANSFERASE 29 U/L (12-78); ALBUMIN 2.6 g/dL (3.4-4.8); ANION GAP 11 (5-15); ASPARTATE AMINOTRANSFERASE 22 U/L (10-37); CALCIUM 8.3 mg/dL (8.4-11.0); CARBON DIOXIDE 28 mmol/L (23-29); CHLORIDE 106 mmol/L (98-107); CREATININE 1.28 mg/dL (0.55-1.30); GLUCOSE 76 mg/dL (74-106); PHOSPHORUS 2.9 mg/dL (2.7-4.5); POTASSIUM 3.2 mmol/L (3.5-5.1); SODIUM SERUM 145 mmol/L (136-145); TOTAL BILIRUBIN 0.7 mg/dL (0.0-1.0); UREA NITROGEN, BLOOD 16 mg/dL (8-21)
[2023-07-19] MEDS: HALOPERIDOL LACTATE 5 MG/ML VIAL ONE (05:31)
[2023-07-19] MEDS: HALOPERIDOL LACTATE 5 MG/ML VIAL IVP PRN ×2 (05:32→20:34)
[2023-07-19 08:36] LABS: ERYTHROCYTE SEDIMENTATION RATE 32 MM/HR (0-15)
[2023-07-19] MEDS ORDERED: MAGNESIUM SULFATE 1 GM/2 ML VIAL IVP ONE (09:00)
[2023-07-19] MEDS: MAGNESIUM SULFATE 50 ML IV ONE (09:48)
[2023-07-19] MEDS: KCL 40 mEq in 100 mL (PREMIX) 100 ML IV ONE (09:50)
[2023-07-19] MEDS: POTASSIUM CHLORIDE IV SCH (20:03)
[2023-07-19] MEDS: K PHOS IV SCH (20:03)
[2023-07-19] MEDS: [UNRECOGNIZED DRUG - OTHER] IV SCH (20:03)
[2023-07-19] MEDS: TPN PERIPHERAL IV SCH (20:03)
[2023-07-19] MEDS: DIPHENHYDRAMINE INJ 50 MG/ML VIAL IVP PRN (22:21)
[2023-07-20] VITALS (29 sets, daily range): BP systolic 105–151; PULSE 74–100; RESP 12–24; TEMP 97.5–98.6; O2SAT 87–100
[2023-07-20] MEDS: AMIODARONE HCL 450 MG/9 ML VIAL IV ONE (00:52)
[2023-07-20 05:32] LABS: ERYTHROCYTE SEDIMENTATION RATE 15 MM/HR (0-15)
[2023-07-20 05:43] LABS: BASOPHILS % (AUTO) 0.5 % (0.0-2.0); EOSINOPHILS # (AUTO) 0.2 K/uL (0.0-0.4); EOSINOPHILS % (AUTO) 2.4 % (0.0-4.0); HEMATOCRIT 33.3 % (36-54); HEMOGLOBIN 11.1 g/dL (14.0-18.0); LYMPHOCYTES # (AUTO) 0.5 K/uL (1.0-5.5); LYMPHOCYTES % (AUTO) 6.3 % (20.5-51.5); MEAN CORPUSCULAR HEMOGLOBIN 29 pg (27-31); MEAN CORPUSCULAR HGB CONC 33 % (32-36); MEAN CORPUSCULAR VOLUME 86 fL (79.0-98.0); MONOCYTES # (AUTO) 0.5 K/uL (0.0-1.0); MONOCYTES % (AUTO) 7.1 % (1.7-9.3); NEUTROPHILS # (AUTO) 6.2 K/uL (1.8-7.7); NEUTROPHILS % (AUTO) 83.7 % (40.0-70.0); PLATELET COUNT (AUTO) 212 K/uL (130-430); RED BLOOD CELL COUNT(AUTO) 3.89 MIL/uL (4.2-6.2); RED CELL DISTRIBUTION WIDTH 14.9 % (9.0-15.0); WHITE BLOOD COUNT (AUTO) 7.4 K/uL (4.8-10.8)
[2023-07-20 06:02] LABS: ALANINE AMINOTRANSFERASE 25 U/L (12-78); ALBUMIN 2.5 g/dL (3.4-4.8); ANION GAP 9 (5-15); ASPARTATE AMINOTRANSFERASE 19 U/L (10-37); CALCIUM 8.3 mg/dL (8.4-11.0); CARBON DIOXIDE 28 mmol/L (23-29); CHLORIDE 104 mmol/L (98-107); CREATININE 1.33 mg/dL (0.55-1.30); GLUCOSE 242 mg/dL (74-106); POTASSIUM 3.7 mmol/L (3.5-5.1); SODIUM SERUM 141 mmol/L (136-145); TOTAL BILIRUBIN 0.6 mg/dL (0.0-1.0); TOTAL PROTEIN, SERUM 6.7 g/dL (6.4-8.3); UREA NITROGEN, BLOOD 20 mg/dL (8-21)
[2023-07-20] MEDS: K PHOS IV SCH (20:24)
[2023-07-20] MEDS: [UNRECOGNIZED DRUG - OTHER] IV SCH (20:24)
[2023-07-20] MEDS: TPN PERIPHERAL IV SCH (20:24)
[2023-07-20] MEDS: POTASSIUM CHLORIDE IV SCH (20:24)
[2023-07-21] VITALS (31 sets, daily range): BP systolic 109–171; PULSE 78–110; RESP 16–35; TEMP 97.2–98.2; O2SAT 84–98
[2023-07-21 05:35] LABS: ERYTHROCYTE SEDIMENTATION RATE 14 MM/HR (0-15)
[2023-07-21 05:49] LABS: BASOPHILS % (AUTO) 0.3 % (0.0-2.0); EOSINOPHILS # (AUTO) 0.1 K/uL (0.0-0.4); EOSINOPHILS % (AUTO) 0.8 % (0.0-4.0); HEMATOCRIT 35.6 % (36-54); HEMOGLOBIN 11.6 g/dL (14.0-18.0); LYMPHOCYTES # (AUTO) 0.2 K/uL (1.0-5.5); LYMPHOCYTES % (AUTO) 1.7 % (20.5-51.5); MEAN CORPUSCULAR HEMOGLOBIN 28 pg (27-31); MEAN CORPUSCULAR HGB CONC 33 % (32-36); MEAN CORPUSCULAR VOLUME 87 fL (79.0-98.0); MONOCYTES % (AUTO) 6.8 % (1.7-9.3); NEUTROPHILS # (AUTO) 12.9 K/uL (1.8-7.7); NEUTROPHILS % (AUTO) 90.4 % (40.0-70.0); PLATELET COUNT (AUTO) 287 K/uL (130-430); RED BLOOD CELL COUNT(AUTO) 4.11 MIL/uL (4.2-6.2); RED CELL DISTRIBUTION WIDTH 14.7 % (9.0-15.0); WHITE BLOOD COUNT (AUTO) 14.3 K/uL (4.8-10.8)
[2023-07-21 06:18] LABS: ALANINE AMINOTRANSFERASE 26 U/L (12-78); ALBUMIN 2.6 g/dL (3.4-4.8); ANION GAP 11 (5-15); ASPARTATE AMINOTRANSFERASE 23 U/L (10-37); CALCIUM 8.6 mg/dL (8.4-11.0); CARBON DIOXIDE 26 mmol/L (23-29); CHLORIDE 102 mmol/L (98-107); CREATININE 1.49 mg/dL (0.55-1.30); GLUCOSE 200 mg/dL (74-106); PHOSPHORUS 2.8 mg/dL (2.7-4.5); SODIUM SERUM 139 mmol/L (136-145); TOTAL BILIRUBIN 0.9 mg/dL (0.0-1.0); UREA NITROGEN, BLOOD 26 mg/dL (8-21)
[2023-07-21] MEDS: AMIODARONE HCL 200 MG TABLET PO ONE (13:20)
[2023-07-21] MEDS: AMIODARONE HCL 200 MG TABLET PO SCH (20:15)
[2023-07-21] MEDS: METOPROLOL TARTRATE 25 MG TABLET PO SCH (20:16)
[2023-07-21] MEDS: POTASSIUM CHLORIDE IV SCH (21:26)
[2023-07-21] MEDS: TPN PERIPHERAL IV SCH (21:26)
[2023-07-21] MEDS: SODIUM CHLORIDE IV SCH (21:26)
[2023-07-21] MEDS: [UNRECOGNIZED DRUG - OTHER] IV SCH (21:26)
[2023-07-21] MEDS: traZODone HCL 50 MG TABLET (DESYREL) PO PRN (22:02)
[2023-07-21] MEDS: traZODone HCL 50 MG TABLET (DESYREL) ONE (22:02)
[2023-07-22] VITALS (30 sets, daily range): BP systolic 92–165; PULSE 68–96; RESP 18–29; TEMP 97.6–98.4; O2SAT 38–99
[2023-07-22 06:41] LABS: BASOPHILS % (AUTO) 0.3 % (0.0-2.0); EOSINOPHILS # (AUTO) 0.1 K/uL (0.0-0.4); EOSINOPHILS % (AUTO) 1.1 % (0.0-4.0); HEMATOCRIT 34.5 % (36-54); HEMOGLOBIN 11.3 g/dL (14.0-18.0); LYMPHOCYTES # (AUTO) 0.5 K/uL (1.0-5.5); LYMPHOCYTES % (AUTO) 6.3 % (20.5-51.5); MEAN CORPUSCULAR HEMOGLOBIN 28 pg (27-31); MEAN CORPUSCULAR HGB CONC 33 % (32-36); MEAN CORPUSCULAR VOLUME 86 fL (79.0-98.0); MONOCYTES # (AUTO) 0.7 K/uL (0.0-1.0); MONOCYTES % (AUTO) 7.6 % (1.7-9.3); NEUTROPHILS # (AUTO) 7.2 K/uL (1.8-7.7); NEUTROPHILS % (AUTO) 84.7 % (40.0-70.0); PLATELET COUNT (AUTO) 203 K/uL (130-430); RED BLOOD CELL COUNT(AUTO) 3.99 MIL/uL (4.2-6.2); RED CELL DISTRIBUTION WIDTH 14.9 % (9.0-15.0); WHITE BLOOD COUNT (AUTO) 8.6 K/uL (4.8-10.8)
[2023-07-22 07:07] LABS: ANION GAP 10 (5-15); CARBON DIOXIDE 25 mmol/L (23-29); CHLORIDE 101 mmol/L (98-107); CREATININE 1.55 mg/dL (0.55-1.30); GLUCOSE 290 mg/dL (74-106); PHOSPHORUS 3.9 mg/dL (2.7-4.5); POTASSIUM 4.4 mmol/L (3.5-5.1); SODIUM SERUM 136 mmol/L (136-145); UREA NITROGEN, BLOOD 34 mg/dL (8-21)
[2023-07-22 08:05] LABS: ERYTHROCYTE SEDIMENTATION RATE 44 MM/HR (0-15)
[2023-07-22] MEDS: ASPIRIN 81 MG TAB.CHEW PO SCH (08:36)
[2023-07-22] MEDS: ATORVASTATIN 20 MG TABLET PO SCH (08:36)
[2023-07-22] MEDS: FUROSEMIDE 20 MG/2 ML VIAL IVP ONE (18:21)
[2023-07-22] MEDS: SODIUM CHLORIDE IV SCH (21:39)
[2023-07-22] MEDS: POTASSIUM CHLORIDE IV SCH (21:39)
[2023-07-22] MEDS: TPN PERIPHERAL IV SCH (21:39)
[2023-07-22] MEDS: [UNRECOGNIZED DRUG - OTHER] IV SCH (21:39)
[2023-07-23] VITALS (33 sets, daily range): BP systolic 85–156; PULSE 59–101; RESP 12–32; TEMP 97.4–98.1; O2SAT 81–100
[2023-07-23 00:29] LABS: BLOOD GAS HCO3 20.4 mmol/L (21.0-27.0); BLOOD GAS PCO2 33.2 mmHg (32.0-45.0); BLOOD GAS PH 7.406 (7.350-7.450); BLOOD GAS PO2 54.2 mmHg (75.0-100.0)
[2023-07-23 00:30] LABS: ABG O2 SAT% ESTIMATE 88.7 % (94.0-100.0); BLOOD GAS BASE EXCESS -3.4 mmol/L (-3.0-3.0)
[2023-07-23] MEDS: DEXMEDETOMIDINE HCL 200 MCG/2 ML VIAL IV ONE ×2 (01:59→07:18)
[2023-07-23 07:01] LABS: BASOPHILS % (AUTO) 0.6 % (0.0-2.0); EOSINOPHILS # (AUTO) 0.1 K/uL (0.0-0.4); EOSINOPHILS % (AUTO) 0.9 % (0.0-4.0); HEMOGLOBIN 10.5 g/dL (14.0-18.0); LYMPHOCYTES # (AUTO) 0.4 K/uL (1.0-5.5); LYMPHOCYTES % (AUTO) 6.5 % (20.5-51.5); MEAN CORPUSCULAR HEMOGLOBIN 28 pg (27-31); MEAN CORPUSCULAR HGB CONC 33 % (32-36); MEAN CORPUSCULAR VOLUME 86 fL (79.0-98.0); MONOCYTES # (AUTO) 0.6 K/uL (0.0-1.0); MONOCYTES % (AUTO) 9.4 % (1.7-9.3); NEUTROPHILS # (AUTO) 5.4 K/uL (1.8-7.7); NEUTROPHILS % (AUTO) 82.6 % (40.0-70.0); PLATELET COUNT (AUTO) 196 K/uL (130-430); RED BLOOD CELL COUNT(AUTO) 3.72 MIL/uL (4.2-6.2); RED CELL DISTRIBUTION WIDTH 14.9 % (9.0-15.0); WHITE BLOOD COUNT (AUTO) 6.5 K/uL (4.8-10.8)
[2023-07-23 07:29] LABS: ALANINE AMINOTRANSFERASE 40 U/L (12-78); ALBUMIN 2.3 g/dL (3.4-4.8); ANION GAP 9 (5-15); ASPARTATE AMINOTRANSFERASE 36 U/L (10-37); CALCIUM 8.5 mg/dL (8.4-11.0); CARBON DIOXIDE 24 mmol/L (23-29); CHLORIDE 101 mmol/L (98-107); CREATININE 1.68 mg/dL (0.55-1.30); GLUCOSE 299 mg/dL (74-106); PHOSPHORUS 4.2 mg/dL (2.7-4.5); SODIUM SERUM 134 mmol/L (136-145); TOTAL BILIRUBIN 0.5 mg/dL (0.0-1.0); UREA NITROGEN, BLOOD 48 mg/dL (8-21)
[2023-07-23 08:34] LABS: ERYTHROCYTE SEDIMENTATION RATE 22 MM/HR (0-15)
[2023-07-23] MEDS: FUROSEMIDE 20 MG/2 ML VIAL IVP SCH (09:00)
[2023-07-23] MEDS: TPN PERIPHERAL IV SCH (21:20)
[2023-07-23] MEDS: POTASSIUM CHLORIDE IV SCH (21:20)
[2023-07-23] MEDS: [UNRECOGNIZED DRUG - OTHER] IV SCH (21:20)
[2023-07-23] MEDS: SODIUM CHLORIDE IV SCH (21:20)
[2023-07-24] VITALS (35 sets, daily range): BP systolic 90–144; PULSE 58–85; RESP 18–31; TEMP 97.3–98.4; O2SAT 69–100
[2023-07-24 06:17] LABS: BASOPHILS % (AUTO) 0.4 % (0.0-2.0); EOSINOPHILS % (AUTO) 0.2 % (0.0-4.0); HEMATOCRIT 33.7 % (36-54); LYMPHOCYTES # (AUTO) 0.4 K/uL (1.0-5.5); LYMPHOCYTES % (AUTO) 3.6 % (20.5-51.5); MEAN CORPUSCULAR HEMOGLOBIN 29 pg (27-31); MEAN CORPUSCULAR HGB CONC 33 % (32-36); MEAN CORPUSCULAR VOLUME 87 fL (79.0-98.0); MONOCYTES # (AUTO) 1.2 K/uL (0.0-1.0); MONOCYTES % (AUTO) 10.5 % (1.7-9.3); NEUTROPHILS # (AUTO) 9.4 K/uL (1.8-7.7); NEUTROPHILS % (AUTO) 85.3 % (40.0-70.0); PLATELET COUNT (AUTO) 288 K/uL (130-430); RED BLOOD CELL COUNT(AUTO) 3.88 MIL/uL (4.2-6.2); RED CELL DISTRIBUTION WIDTH 15.3 % (9.0-15.0)
[2023-07-24 06:25] LABS: ALANINE AMINOTRANSFERASE 118 U/L (12-78); ALBUMIN 2.4 g/dL (3.4-4.8); ANION GAP 8 (5-15); ASPARTATE AMINOTRANSFERASE 102 U/L (10-37); CALCIUM 8.1 mg/dL (8.4-11.0); CARBON DIOXIDE 20 mmol/L (23-29); CHLORIDE 100 mmol/L (98-107); CREATININE 2.39 mg/dL (0.55-1.30); GLUCOSE 272 mg/dL (74-106); SODIUM SERUM 128 mmol/L (136-145); TOTAL BILIRUBIN 0.8 mg/dL (0.0-1.0); TOTAL PROTEIN, SERUM 6.3 g/dL (6.4-8.3); UREA NITROGEN, BLOOD 70 mg/dL (8-21)
[2023-07-24] MEDS ORDERED: FUROSEMIDE 20 MG/2 ML VIAL ONE (08:51)
[2023-07-24 15:44] LABS: ANION GAP 14 (5-15); CALCIUM 8.8 mg/dL (8.4-11.0); CARBON DIOXIDE 18 mmol/L (23-29); CHLORIDE 97 mmol/L (98-107); CREATININE 2.86 mg/dL (0.55-1.30); GLUCOSE 264 mg/dL (74-106); POTASSIUM 5.6 mmol/L (3.5-5.1); SODIUM SERUM 129 mmol/L (136-145); UREA NITROGEN, BLOOD 83 mg/dL (8-21)
[2023-07-24] MEDS: SODIUM BICARBONATE 8.4% JECT 50 MEQ/50 ML SYRINGE ONE (17:01)
[2023-07-24] MEDS: SODIUM BICARBONATE 8.4% JECT 50 MEQ/50 ML SYRINGE IVP ONE (17:02)
[2023-07-24] MEDS: SODIUM ZIRCONIUM CYCLOSILICATE 10 GM POWD.PACK PO ONE (17:42)
[2023-07-24] MEDS: BUMEX 1 MG/4 ML VIAL IVP ONE (17:42)
[2023-07-24] MEDS: [UNRECOGNIZED DRUG - OTHER] IV SCH (20:39)
[2023-07-24] MEDS: MAGNESIUM SULFATE IV SCH (20:39)
[2023-07-24] MEDS: MVI IV SCH (20:39)
[2023-07-24] MEDS: SODIUM CHLORIDE IV SCH (20:39)
[2023-07-24] MEDS: TPN PERIPHERAL IV SCH (20:39)
[2023-07-24] MEDS: LINEZOLID 300 ML IV SCH (20:40)
[2023-07-25] VITALS (30 sets, daily range): BP systolic 110–140; PULSE 48–68; RESP 13–30; TEMP 97.5–98; O2SAT 91–100
[2023-07-25 05:54] LABS: BASOPHILS # (AUTO) 0.1 K/uL (0.0-0.2); BASOPHILS % (AUTO) 0.6 % (0.0-2.0); EOSINOPHILS # (AUTO) 0.1 K/uL (0.0-0.4); EOSINOPHILS % (AUTO) 0.8 % (0.0-4.0); HEMATOCRIT 34.8 % (36-54); HEMOGLOBIN 11.5 g/dL (14.0-18.0); LYMPHOCYTES # (AUTO) 0.4 K/uL (1.0-5.5); LYMPHOCYTES % (AUTO) 4.5 % (20.5-51.5); MEAN CORPUSCULAR HEMOGLOBIN 28 pg (27-31); MEAN CORPUSCULAR HGB CONC 33 % (32-36); MEAN CORPUSCULAR VOLUME 86 fL (79.0-98.0); MONOCYTES % (AUTO) 9.9 % (1.7-9.3); NEUTROPHILS # (AUTO) 8.1 K/uL (1.8-7.7); NEUTROPHILS % (AUTO) 84.2 % (40.0-70.0); PLATELET COUNT (AUTO) 247 K/uL (130-430); RED BLOOD CELL COUNT(AUTO) 4.06 MIL/uL (4.2-6.2); RED CELL DISTRIBUTION WIDTH 15.2 % (9.0-15.0); WHITE BLOOD COUNT (AUTO) 9.7 K/uL (4.8-10.8)
[2023-07-25 06:23] LABS: ALANINE AMINOTRANSFERASE 286 U/L (12-78); ALBUMIN 2.3 g/dL (3.4-4.8); ANION GAP 10 (5-15); CALCIUM 8.5 mg/dL (8.4-11.0); CARBON DIOXIDE 24 mmol/L (23-29); CHLORIDE 95 mmol/L (98-107); CREATININE 2.64 mg/dL (0.55-1.30); GLUCOSE 267 mg/dL (74-106); POTASSIUM 3.8 mmol/L (3.5-5.1); SODIUM SERUM 129 mmol/L (136-145); TOTAL BILIRUBIN 0.6 mg/dL (0.0-1.0); TOTAL PROTEIN, SERUM 6.1 g/dL (6.4-8.3); UREA NITROGEN, BLOOD 80 mg/dL (8-21)
[2023-07-25 06:57] LABS: ASPARTATE AMINOTRANSFERASE 162 U/L (10-37)
[2023-07-25] MEDS: POTASSIUM CHLORIDE IV SCH (20:26)
[2023-07-25] MEDS: [UNRECOGNIZED DRUG - OTHER] IV SCH (20:26)
[2023-07-25] MEDS: SODIUM CHLORIDE IV SCH (20:26)
[2023-07-25] MEDS: TPN PERIPHERAL IV SCH (20:26)
[2023-07-26] VITALS (29 sets, daily range): BP systolic 109–160; PULSE 17–75; RESP 13–23; TEMP 97.6–98; O2SAT 83–100
[2023-07-26 05:52] LABS: ERYTHROCYTE SEDIMENTATION RATE 1 MM/HR (0-15)
[2023-07-26 06:09] LABS: BASOPHILS % (AUTO) 0.4 % (0.0-2.0); EOSINOPHILS # (AUTO) 0.2 K/uL (0.0-0.4); EOSINOPHILS % (AUTO) 2.2 % (0.0-4.0); HEMATOCRIT 33.2 % (36-54); LYMPHOCYTES # (AUTO) 0.3 K/uL (1.0-5.5); LYMPHOCYTES % (AUTO) 3.3 % (20.5-51.5); MEAN CORPUSCULAR HEMOGLOBIN 28 pg (27-31); MEAN CORPUSCULAR HGB CONC 33 % (32-36); MEAN CORPUSCULAR VOLUME 86 fL (79.0-98.0); MONOCYTES # (AUTO) 0.6 K/uL (0.0-1.0); MONOCYTES % (AUTO) 8.3 % (1.7-9.3); NEUTROPHILS # (AUTO) 6.6 K/uL (1.8-7.7); NEUTROPHILS % (AUTO) 85.8 % (40.0-70.0); PLATELET COUNT (AUTO) 216 K/uL (130-430); RED BLOOD CELL COUNT(AUTO) 3.88 MIL/uL (4.2-6.2); RED CELL DISTRIBUTION WIDTH 14.9 % (9.0-15.0); WHITE BLOOD COUNT (AUTO) 7.7 K/uL (4.8-10.8)
[2023-07-26 07:00] LABS: ALANINE AMINOTRANSFERASE 215 U/L (12-78); ALBUMIN 2.1 g/dL (3.4-4.8); ANION GAP 7 (5-15); CALCIUM 8.2 mg/dL (8.4-11.0); CARBON DIOXIDE 27 mmol/L (23-29); CHLORIDE 97 mmol/L (98-107); GLUCOSE 271 mg/dL (74-106); SODIUM SERUM 131 mmol/L (136-145); TOTAL BILIRUBIN 0.5 mg/dL (0.0-1.0); TOTAL PROTEIN, SERUM 5.7 g/dL (6.4-8.3); UREA NITROGEN, BLOOD 75 mg/dL (8-21)
[2023-07-26 07:17] LABS: ASPARTATE AMINOTRANSFERASE 71 U/L (10-37)
[2023-07-26] MEDS ORDERED: KCL 20 mEq in NS 1000 mL 1,000 ML IV SCH (11:30)
[2023-07-26] MEDS: POTASSIUM CHLORIDE 20 MEQ/PKT PACKET PO ONE (12:34)
[2023-07-26] MEDS: [UNRECOGNIZED DRUG - OTHER] IV SCH (20:29)
[2023-07-26] MEDS: POTASSIUM CHLORIDE IV SCH (20:29)
[2023-07-26] MEDS: TPN PERIPHERAL IV SCH (20:29)
[2023-07-26] MEDS: SODIUM CHLORIDE IV SCH (20:29)
[2023-07-27] VITALS (31 sets, daily range): BP systolic 112–169; PULSE 62–93; RESP 16–28; TEMP 97.2–97.8; O2SAT 71–99
[2023-07-27] MEDS: HALOPERIDOL LACTATE 5 MG/ML VIAL IM PRN (02:58)
[2023-07-27 05:20] LABS: ERYTHROCYTE SEDIMENTATION RATE 2 MM/HR (0-15)
[2023-07-27 05:26] LABS: BASOPHILS % (AUTO) 0.4 % (0.0-2.0); EOSINOPHILS # (AUTO) 0.1 K/uL (0.0-0.4); EOSINOPHILS % (AUTO) 1.6 % (0.0-4.0); HEMATOCRIT 36.4 % (36-54); LYMPHOCYTES # (AUTO) 0.3 K/uL (1.0-5.5); LYMPHOCYTES % (AUTO) 3.6 % (20.5-51.5); MEAN CORPUSCULAR HEMOGLOBIN 28 pg (27-31); MEAN CORPUSCULAR HGB CONC 33 % (32-36); MEAN CORPUSCULAR VOLUME 86 fL (79.0-98.0); MONOCYTES # (AUTO) 0.7 K/uL (0.0-1.0); MONOCYTES % (AUTO) 8.4 % (1.7-9.3); NEUTROPHILS # (AUTO) 7.2 K/uL (1.8-7.7); PLATELET COUNT (AUTO) 277 K/uL (130-430); RED BLOOD CELL COUNT(AUTO) 4.26 MIL/uL (4.2-6.2); RED CELL DISTRIBUTION WIDTH 15.3 % (9.0-15.0); WHITE BLOOD COUNT (AUTO) 8.4 K/uL (4.8-10.8)
[2023-07-27 05:56] LABS: ALANINE AMINOTRANSFERASE 218 U/L (12-78); ALBUMIN 2.3 g/dL (3.4-4.8); ANION GAP 8 (5-15); ASPARTATE AMINOTRANSFERASE 77 U/L (10-37); CALCIUM 8.3 mg/dL (8.4-11.0); CARBON DIOXIDE 26 mmol/L (23-29); CHLORIDE 100 mmol/L (98-107); CREATININE 2.17 mg/dL (0.55-1.30); GLUCOSE 237 mg/dL (74-106); PHOSPHORUS 2.9 mg/dL (2.7-4.5); POTASSIUM 3.2 mmol/L (3.5-5.1); SODIUM SERUM 134 mmol/L (136-145); TOTAL BILIRUBIN 0.6 mg/dL (0.0-1.0); TOTAL PROTEIN, SERUM 6.3 g/dL (6.4-8.3); UREA NITROGEN, BLOOD 69 mg/dL (8-21)
[2023-07-27] MEDS ORDERED: POTASSIUM CHLORIDE IV SCH (12:00)
[2023-07-27] MEDS ORDERED: SODIUM CHLORIDE IV SCH (12:00)
[2023-07-27] MEDS ORDERED: [UNRECOGNIZED DRUG - OTHER] IV SCH (12:00)
[2023-07-27] MEDS ORDERED: TPN PERIPHERAL IV SCH (12:00)
[2023-07-27] MEDS: KCL 40 mEq in 100 mL (PREMIX) 100 ML IV ONE (14:18)
[2023-07-27] MEDS: TPN PERIPHERAL IV SCH (21:19)
[2023-07-27] MEDS: SODIUM CHLORIDE IV SCH (21:19)
[2023-07-27] MEDS: POTASSIUM CHLORIDE IV SCH (21:19)
[2023-07-27] MEDS: [UNRECOGNIZED DRUG - OTHER] IV SCH (21:19)
[2023-07-28] VITALS (32 sets, daily range): BP systolic 136–177; PULSE 62–146; RESP 18–26; TEMP 97–97.9; O2SAT 18–100
[2023-07-28 05:37] LABS: ERYTHROCYTE SEDIMENTATION RATE 5 MM/HR (0-15)
[2023-07-28 05:44] LABS: BASOPHILS % (AUTO) 0.4 % (0.0-2.0); EOSINOPHILS # (AUTO) 0.1 K/uL (0.0-0.4); EOSINOPHILS % (AUTO) 0.7 % (0.0-4.0); HEMOGLOBIN 11.6 g/dL (14.0-18.0); LYMPHOCYTES # (AUTO) 0.3 K/uL (1.0-5.5); LYMPHOCYTES % (AUTO) 3.8 % (20.5-51.5); MEAN CORPUSCULAR HEMOGLOBIN 29 pg (27-31); MEAN CORPUSCULAR HGB CONC 33 % (32-36); MEAN CORPUSCULAR VOLUME 86 fL (79.0-98.0); MONOCYTES # (AUTO) 0.8 K/uL (0.0-1.0); NEUTROPHILS # (AUTO) 7.6 K/uL (1.8-7.7); NEUTROPHILS % (AUTO) 86.1 % (40.0-70.0); PLATELET COUNT (AUTO) 257 K/uL (130-430); RED BLOOD CELL COUNT(AUTO) 4.07 MIL/uL (4.2-6.2); RED CELL DISTRIBUTION WIDTH 15.6 % (9.0-15.0); WHITE BLOOD COUNT (AUTO) 8.9 K/uL (4.8-10.8)
[2023-07-28 06:24] LABS: ALANINE AMINOTRANSFERASE 164 U/L (12-78); ALBUMIN 2.4 g/dL (3.4-4.8); ANION GAP 9 (5-15); ASPARTATE AMINOTRANSFERASE 48 U/L (10-37); CALCIUM 8.3 mg/dL (8.4-11.0); CARBON DIOXIDE 26 mmol/L (23-29); CHLORIDE 105 mmol/L (98-107); CREATININE 1.93 mg/dL (0.55-1.30); GLUCOSE 214 mg/dL (74-106); PHOSPHORUS 2.5 mg/dL (2.7-4.5); POTASSIUM 3.6 mmol/L (3.5-5.1); SODIUM SERUM 140 mmol/L (136-145); TOTAL BILIRUBIN 0.8 mg/dL (0.0-1.0); TOTAL PROTEIN, SERUM 6.5 g/dL (6.4-8.3); UREA NITROGEN, BLOOD 56 mg/dL (8-21)
[2023-07-28] MEDS: [UNRECOGNIZED DRUG - OTHER] IV SCH (21:32)
[2023-07-28] MEDS: TPN PERIPHERAL IV SCH (21:32)
[2023-07-28] MEDS: POTASSIUM CHLORIDE IV SCH (21:32)
[2023-07-28] MEDS: SODIUM CHLORIDE IV SCH (21:32)
[2023-07-29] VITALS (33 sets, daily range): BP systolic 135–184; PULSE 70–89; RESP 18–33; TEMP 97.1–97.7; O2SAT 89–99
[2023-07-29 05:41] LABS: BASOPHILS % (AUTO) 0.2 % (0.0-2.0); EOSINOPHILS % (AUTO) 0.3 % (0.0-4.0); HEMATOCRIT 37.3 % (36-54); HEMOGLOBIN 12.3 g/dL (14.0-18.0); LYMPHOCYTES # (AUTO) 0.5 K/uL (1.0-5.5); LYMPHOCYTES % (AUTO) 3.4 % (20.5-51.5); MEAN CORPUSCULAR HEMOGLOBIN 28 pg (27-31); MEAN CORPUSCULAR HGB CONC 33 % (32-36); MEAN CORPUSCULAR VOLUME 85 fL (79.0-98.0); MONOCYTES # (AUTO) 0.9 K/uL (0.0-1.0); MONOCYTES % (AUTO) 6.5 % (1.7-9.3); NEUTROPHILS # (AUTO) 12.1 K/uL (1.8-7.7); NEUTROPHILS % (AUTO) 89.6 % (40.0-70.0); PLATELET COUNT (AUTO) 272 K/uL (130-430); RED BLOOD CELL COUNT(AUTO) 4.37 MIL/uL (4.2-6.2); RED CELL DISTRIBUTION WIDTH 14.9 % (9.0-15.0); WHITE BLOOD COUNT (AUTO) 13.5 K/uL (4.8-10.8)
[2023-07-29 06:17] LABS: ANION GAP 12 (5-15); CALCIUM 8.7 mg/dL (8.4-11.0); CARBON DIOXIDE 22 mmol/L (23-29); CHLORIDE 105 mmol/L (98-107); CREATININE 1.64 mg/dL (0.55-1.30); GLUCOSE 216 mg/dL (74-106); PHOSPHORUS 2.7 mg/dL (2.7-4.5); POTASSIUM 3.3 mmol/L (3.5-5.1); SODIUM SERUM 139 mmol/L (136-145); UREA NITROGEN, BLOOD 49 mg/dL (8-21)
[2023-07-29 09:35] LABS: ERYTHROCYTE SEDIMENTATION RATE 36 MM/HR (0-15)
[2023-07-29] MEDS: POTASSIUM CHLORIDE IV SCH (21:31)
[2023-07-29] MEDS: TPN PERIPHERAL IV SCH (21:31)
[2023-07-29] MEDS: SODIUM CHLORIDE IV SCH (21:31)
[2023-07-29] MEDS: [UNRECOGNIZED DRUG - OTHER] IV SCH (21:31)
[2023-07-30] VITALS (33 sets, daily range): BP systolic 115–196; PULSE 65–97; RESP 18–45; TEMP 97.5–98.3; O2SAT 79–100
[2023-07-30 05:28] LABS: BASOPHILS % (AUTO) 0.3 % (0.0-2.0); HEMATOCRIT 35.7 % (36-54); HEMOGLOBIN 11.8 g/dL (14.0-18.0); LYMPHOCYTES # (AUTO) 0.4 K/uL (1.0-5.5); LYMPHOCYTES % (AUTO) 2.8 % (20.5-51.5); MEAN CORPUSCULAR HEMOGLOBIN 28 pg (27-31); MEAN CORPUSCULAR HGB CONC 33 % (32-36); MEAN CORPUSCULAR VOLUME 85 fL (79.0-98.0); MONOCYTES % (AUTO) 6.7 % (1.7-9.3); NEUTROPHILS # (AUTO) 12.9 K/uL (1.8-7.7); NEUTROPHILS % (AUTO) 90.2 % (40.0-70.0); PLATELET COUNT (AUTO) 277 K/uL (130-430); RED BLOOD CELL COUNT(AUTO) 4.21 MIL/uL (4.2-6.2); RED CELL DISTRIBUTION WIDTH 15.8 % (9.0-15.0); WHITE BLOOD COUNT (AUTO) 14.3 K/uL (4.8-10.8)
[2023-07-30 05:35] LABS: ERYTHROCYTE SEDIMENTATION RATE 25 MM/HR (0-15)
[2023-07-30 05:53] LABS: ALANINE AMINOTRANSFERASE 118 U/L (12-78); ALBUMIN 2.4 g/dL (3.4-4.8); ANION GAP 12 (5-15); ASPARTATE AMINOTRANSFERASE 44 U/L (10-37); CALCIUM 8.7 mg/dL (8.4-11.0); CARBON DIOXIDE 22 mmol/L (23-29); CHLORIDE 108 mmol/L (98-107); CREATININE 1.91 mg/dL (0.55-1.30); GLUCOSE 210 mg/dL (74-106); PHOSPHORUS 3.5 mg/dL (2.7-4.5); POTASSIUM 3.7 mmol/L (3.5-5.1); SODIUM SERUM 142 mmol/L (136-145); TOTAL BILIRUBIN 0.8 mg/dL (0.0-1.0); TOTAL PROTEIN, SERUM 6.7 g/dL (6.4-8.3); UREA NITROGEN, BLOOD 58 mg/dL (8-21)
[2023-07-30] MEDS: FUROSEMIDE 40 MG/4 ML VIAL IVP ONE (10:39)
[2023-07-30] MEDS: CEFEPIME 2 GM in D5W 100 ML IV SCH (16:36)
[2023-07-30] MEDS: SODIUM CHLORIDE IV SCH (21:00)
[2023-07-30] MEDS: POTASSIUM CHLORIDE IV SCH (21:00)
[2023-07-30] MEDS: TPN PERIPHERAL IV SCH (21:00)
[2023-07-30] MEDS: [UNRECOGNIZED DRUG - OTHER] IV SCH (21:00)
[2023-07-31] VITALS (31 sets, daily range): BP systolic 100–143; PULSE 61–92; RESP 14–22; TEMP 97–98.4; O2SAT 14–100
[2023-07-31 05:32] LABS: BASOPHILS # (AUTO) 0.1 K/uL (0.0-0.2); BASOPHILS % (AUTO) 0.6 % (0.0-2.0); EOSINOPHILS % (AUTO) 0.3 % (0.0-4.0); HEMATOCRIT 33.3 % (36-54); LYMPHOCYTES # (AUTO) 0.5 K/uL (1.0-5.5); MEAN CORPUSCULAR HEMOGLOBIN 29 pg (27-31); MEAN CORPUSCULAR HGB CONC 33 % (32-36); MEAN CORPUSCULAR VOLUME 86 fL (79.0-98.0); MONOCYTES # (AUTO) 0.7 K/uL (0.0-1.0); MONOCYTES % (AUTO) 7.4 % (1.7-9.3); NEUTROPHILS # (AUTO) 8.2 K/uL (1.8-7.7); NEUTROPHILS % (AUTO) 86.7 % (40.0-70.0); PLATELET COUNT (AUTO) 176 K/uL (130-430); RED BLOOD CELL COUNT(AUTO) 3.85 MIL/uL (4.2-6.2); RED CELL DISTRIBUTION WIDTH 15.4 % (9.0-15.0); WHITE BLOOD COUNT (AUTO) 9.5 K/uL (4.8-10.8)
[2023-07-31 05:34] LABS: ERYTHROCYTE SEDIMENTATION RATE 9 MM/HR (0-15)
[2023-07-31 05:45] LABS: ALANINE AMINOTRANSFERASE 88 U/L (12-78); ALBUMIN 2.1 g/dL (3.4-4.8); ANION GAP 12 (5-15); ASPARTATE AMINOTRANSFERASE 40 U/L (10-37); CALCIUM 8.6 mg/dL (8.4-11.0); CARBON DIOXIDE 22 mmol/L (23-29); CHLORIDE 108 mmol/L (98-107); CREATININE 2.09 mg/dL (0.55-1.30); GLUCOSE 159 mg/dL (74-106); PHOSPHORUS 4.1 mg/dL (2.7-4.5); POTASSIUM 3.7 mmol/L (3.5-5.1); SODIUM SERUM 142 mmol/L (136-145); TOTAL BILIRUBIN 0.7 mg/dL (0.0-1.0); UREA NITROGEN, BLOOD 65 mg/dL (8-21)
[2023-07-31] MEDS: FUROSEMIDE 40 MG/4 ML VIAL IVP SCH (10:00)
[2023-07-31] MEDS: SODIUM CHLORIDE IV SCH (20:40)
[2023-07-31] MEDS: POTASSIUM ACETATE IV SCH (20:40)
[2023-07-31] MEDS: TPN PERIPHERAL IV SCH (20:40)
[2023-07-31] MEDS: [UNRECOGNIZED DRUG - OTHER] IV SCH (20:40)
[2023-08-01] VITALS (34 sets, daily range): BP systolic 132–178; PULSE 69–88; RESP 15–30; TEMP 96.5–97.1; O2SAT 90–100
[2023-08-01 05:13] LABS: BASOPHILS % (AUTO) 0.5 % (0.0-2.0); EOSINOPHILS # (AUTO) 0.1 K/uL (0.0-0.4); HEMATOCRIT 34.9 % (36-54); HEMOGLOBIN 11.4 g/dL (14.0-18.0); LYMPHOCYTES # (AUTO) 0.4 K/uL (1.0-5.5); LYMPHOCYTES % (AUTO) 4.1 % (20.5-51.5); MEAN CORPUSCULAR HEMOGLOBIN 29 pg (27-31); MEAN CORPUSCULAR HGB CONC 33 % (32-36); MEAN CORPUSCULAR VOLUME 87 fL (79.0-98.0); MONOCYTES # (AUTO) 0.5 K/uL (0.0-1.0); MONOCYTES % (AUTO) 4.8 % (1.7-9.3); NEUTROPHILS # (AUTO) 9.3 K/uL (1.8-7.7); NEUTROPHILS % (AUTO) 89.6 % (40.0-70.0); PLATELET COUNT (AUTO) 202 K/uL (130-430); RED BLOOD CELL COUNT(AUTO) 4.02 MIL/uL (4.2-6.2); RED CELL DISTRIBUTION WIDTH 15.3 % (9.0-15.0); WHITE BLOOD COUNT (AUTO) 10.3 K/uL (4.8-10.8)
[2023-08-01 05:36] LABS: ALANINE AMINOTRANSFERASE 88 U/L (12-78); ALBUMIN 2.3 g/dL (3.4-4.8); ANION GAP 13 (5-15); ASPARTATE AMINOTRANSFERASE 38 U/L (10-37); CALCIUM 8.4 mg/dL (8.4-11.0); CARBON DIOXIDE 23 mmol/L (23-29); CHLORIDE 105 mmol/L (98-107); CREATININE 2.06 mg/dL (0.55-1.30); GLUCOSE 169 mg/dL (74-106); PHOSPHORUS 3.6 mg/dL (2.7-4.5); POTASSIUM 3.3 mmol/L (3.5-5.1); SODIUM SERUM 141 mmol/L (136-145); TOTAL BILIRUBIN 0.6 mg/dL (0.0-1.0); TOTAL PROTEIN, SERUM 6.3 g/dL (6.4-8.3); UREA NITROGEN, BLOOD 68 mg/dL (8-21)
[2023-08-01] MEDS: POTASSIUM CHLORIDE 20 MEQ/PKT PACKET PO ONE (10:55)
[2023-08-01] MEDS: POLYETHYLENE GLYCOL 3350, 17 GM/ POWD.PACK PO ONE (12:30)
[2023-08-01] MEDS: DOCUSATE SODIUM 100 MG CAPSULE PO ONE (12:30)
[2023-08-01] MEDS: TPN PERIPHERAL IV SCH (20:17)
[2023-08-01] MEDS: POTASSIUM ACETATE IV SCH (20:17)
[2023-08-01] MEDS: SODIUM CHLORIDE IV SCH (20:17)
[2023-08-01] MEDS: [UNRECOGNIZED DRUG - OTHER] IV SCH (20:17)
[2023-08-01] MEDS: DOCUSATE SODIUM 100 MG CAPSULE PO SCH (20:55)
[2023-08-02] VITALS (35 sets, daily range): BP systolic 98–187; PULSE 66–94; RESP 17–29; TEMP 97–98.9; O2SAT 90–100
[2023-08-02 05:02] LABS: BASOPHILS # (AUTO) 0.1 K/uL (0.0-0.2); BASOPHILS % (AUTO) 0.4 % (0.0-2.0); EOSINOPHILS # (AUTO) 0.1 K/uL (0.0-0.4); EOSINOPHILS % (AUTO) 1.1 % (0.0-4.0); HEMATOCRIT 34.7 % (36-54); HEMOGLOBIN 11.4 g/dL (14.0-18.0); LYMPHOCYTES # (AUTO) 0.4 K/uL (1.0-5.5); LYMPHOCYTES % (AUTO) 3.7 % (20.5-51.5); MEAN CORPUSCULAR HEMOGLOBIN 28 pg (27-31); MEAN CORPUSCULAR HGB CONC 33 % (32-36); MEAN CORPUSCULAR VOLUME 86 fL (79.0-98.0); MONOCYTES # (AUTO) 0.6 K/uL (0.0-1.0); MONOCYTES % (AUTO) 5.5 % (1.7-9.3); NEUTROPHILS # (AUTO) 10.5 K/uL (1.8-7.7); NEUTROPHILS % (AUTO) 89.3 % (40.0-70.0); PLATELET COUNT (AUTO) 208 K/uL (130-430); RED BLOOD CELL COUNT(AUTO) 4.05 MIL/uL (4.2-6.2); RED CELL DISTRIBUTION WIDTH 15.3 % (9.0-15.0); WHITE BLOOD COUNT (AUTO) 11.7 K/uL (4.8-10.8)
[2023-08-02 05:06] LABS: ALANINE AMINOTRANSFERASE 89 U/L (12-78); ALBUMIN 2.4 g/dL (3.4-4.8); ANION GAP 10 (5-15); ASPARTATE AMINOTRANSFERASE 46 U/L (10-37); CALCIUM 8.3 mg/dL (8.4-11.0); CARBON DIOXIDE 28 mmol/L (23-29); CHLORIDE 106 mmol/L (98-107); CREATININE 1.76 mg/dL (0.55-1.30); GLUCOSE 188 mg/dL (74-106); PHOSPHORUS 2.6 mg/dL (2.7-4.5); SODIUM SERUM 144 mmol/L (136-145); TOTAL BILIRUBIN 0.8 mg/dL (0.0-1.0); TOTAL PROTEIN, SERUM 6.7 g/dL (6.4-8.3); UREA NITROGEN, BLOOD 66 mg/dL (8-21)
[2023-08-02 06:13] LABS: ERYTHROCYTE SEDIMENTATION RATE 2 MM/HR (0-15)
[2023-08-02 06:35] LABS: POTASSIUM 2.7 mmol/L (3.5-5.1)
[2023-08-02] MEDS: hydrALAZINE HCL 20 MG/ML VIAL IVP PRN (08:09)
[2023-08-02] MEDS: POLYETHYLENE GLYCOL 3350, 17 GM/ POWD.PACK PO SCH (08:13)
[2023-08-02] MEDS: POTASSIUM CHLORIDE 20 MEQ/PKT PACKET PO ONE (12:38)
[2023-08-02] MEDS: QUEtiapine FUMARATE 25 MG TABLET PO PRN (15:41)
[2023-08-02] MEDS: POTASSIUM ACETATE IV SCH (21:00)
[2023-08-02] MEDS: TPN PERIPHERAL IV SCH (21:00)
[2023-08-02] MEDS: SODIUM CHLORIDE IV SCH (21:00)
[2023-08-02] MEDS: [UNRECOGNIZED DRUG - OTHER] IV SCH (21:00)
[2023-08-03] VITALS (31 sets, daily range): BP systolic 94–161; PULSE 72–105; RESP 15–25; TEMP 97.1–97.6; O2SAT 96–100
[2023-08-03 05:04] LABS: ERYTHROCYTE SEDIMENTATION RATE 1 MM/HR (0-15)
[2023-08-03 05:15] LABS: BASOPHILS % (AUTO) 0.4 % (0.0-2.0); EOSINOPHILS # (AUTO) 0.1 K/uL (0.0-0.4); EOSINOPHILS % (AUTO) 0.6 % (0.0-4.0); HEMATOCRIT 23.1 % (36-54); HEMOGLOBIN 7.7 g/dL (14.0-18.0); LYMPHOCYTES # (AUTO) 0.4 K/uL (1.0-5.5); LYMPHOCYTES % (AUTO) 4.4 % (20.5-51.5); MEAN CORPUSCULAR HEMOGLOBIN 29 pg (27-31); MEAN CORPUSCULAR HGB CONC 34 % (32-36); MEAN CORPUSCULAR VOLUME 85 fL (79.0-98.0); MONOCYTES # (AUTO) 0.8 K/uL (0.0-1.0); MONOCYTES % (AUTO) 8.7 % (1.7-9.3); NEUTROPHILS % (AUTO) 85.9 % (40.0-70.0); PLATELET COUNT (AUTO) 146 K/uL (130-430); RED BLOOD CELL COUNT(AUTO) 2.72 MIL/uL (4.2-6.2); RED CELL DISTRIBUTION WIDTH 15.5 % (9.0-15.0); WHITE BLOOD COUNT (AUTO) 9.3 K/uL (4.8-10.8)
[2023-08-03 05:44] LABS: ALANINE AMINOTRANSFERASE 58 U/L (12-78); ALBUMIN 1.9 g/dL (3.4-4.8); ANION GAP 11 (5-15); ASPARTATE AMINOTRANSFERASE 32 U/L (10-37); CALCIUM 7.8 mg/dL (8.4-11.0); CARBON DIOXIDE 25 mmol/L (23-29); CHLORIDE 113 mmol/L (98-107); CREATININE 1.76 mg/dL (0.55-1.30); GLUCOSE 221 mg/dL (74-106); PHOSPHORUS 2.4 mg/dL (2.7-4.5); SODIUM SERUM 149 mmol/L (136-145); TOTAL BILIRUBIN 0.5 mg/dL (0.0-1.0); TOTAL PROTEIN, SERUM 5.3 g/dL (6.4-8.3); UREA NITROGEN, BLOOD 84 mg/dL (8-21)
[2023-08-03] MEDS: POTASSIUM ACETATE IV SCH (20:58)
[2023-08-03] MEDS: [UNRECOGNIZED DRUG - OTHER] IV SCH (20:58)
[2023-08-03] MEDS: SODIUM CHLORIDE IV SCH (20:58)
[2023-08-03] MEDS: TPN PERIPHERAL IV SCH (20:58)
[2023-08-04] VITALS (23 sets, daily range): BP systolic 97–187; PULSE 70–97; RESP 16–30; TEMP 97.2–99.3; O2SAT 22–100
[2023-08-04 04:54] LABS: ERYTHROCYTE SEDIMENTATION RATE < 1 MM/HR (0-15)
[2023-08-04 05:05] LABS: BASOPHILS # (AUTO) 0.1 K/uL (0.0-0.2); BASOPHILS % (AUTO) 0.8 % (0.0-2.0); EOSINOPHILS # (AUTO) 0.2 K/uL (0.0-0.4); EOSINOPHILS % (AUTO) 2.3 % (0.0-4.0); LYMPHOCYTES # (AUTO) 0.4 K/uL (1.0-5.5); LYMPHOCYTES % (AUTO) 4.1 % (20.5-51.5); MEAN CORPUSCULAR HEMOGLOBIN 29 pg (27-31); MEAN CORPUSCULAR HGB CONC 34 % (32-36); MEAN CORPUSCULAR VOLUME 85 fL (79.0-98.0); MONOCYTES # (AUTO) 0.8 K/uL (0.0-1.0); MONOCYTES % (AUTO) 8.3 % (1.7-9.3); NEUTROPHILS # (AUTO) 8.3 K/uL (1.8-7.7); NEUTROPHILS % (AUTO) 84.5 % (40.0-70.0); PLATELET COUNT (AUTO) 129 K/uL (130-430); RED CELL DISTRIBUTION WIDTH 15.7 % (9.0-15.0); WHITE BLOOD COUNT (AUTO) 9.8 K/uL (4.8-10.8)
[2023-08-04 05:27] LABS: ALANINE AMINOTRANSFERASE 59 U/L (12-78); ALBUMIN 1.7 g/dL (3.4-4.8); ANION GAP 9 (5-15); ASPARTATE AMINOTRANSFERASE 35 U/L (10-37); CALCIUM 7.6 mg/dL (8.4-11.0); CARBON DIOXIDE 25 mmol/L (23-29); CHLORIDE 116 mmol/L (98-107); CREATININE 1.97 mg/dL (0.55-1.30); GLUCOSE 249 mg/dL (74-106); PHOSPHORUS 2.5 mg/dL (2.7-4.5); POTASSIUM 3.2 mmol/L (3.5-5.1); SODIUM SERUM 150 mmol/L (136-145); TOTAL BILIRUBIN 0.4 mg/dL (0.0-1.0); TOTAL PROTEIN, SERUM 4.6 g/dL (6.4-8.3); TRIGLYCERIDES 65 mg/dL (30-150)
[2023-08-04 05:50] LABS: UREA NITROGEN, BLOOD 103 mg/dL (8-21)
[2023-08-04 05:56] LABS: RED BLOOD CELL COUNT(AUTO) 1.86 MIL/uL (4.2-6.2)
[2023-08-04 05:59] LABS: HEMATOCRIT 15.7 % (36-54); HEMOGLOBIN 5.4 g/dL (14.0-18.0)
[2023-08-04] MEDS: KCL 20 mEq in 100 mL (PREMIX) 100 ML IV ONE (07:52)
[2023-08-04] MEDS: PANTOPRAZOLE SODIUM 40 MG/VIAL (PROTONIX) IVP SCH (08:55)
[2023-08-04] MEDS ORDERED: NALOXONE HCL 0.4 MG/ML AMP (NARCAN) IVP PRN (13:00)
[2023-08-04] MEDS ORDERED: amLODIPine BESYLATE 10 MG TABLET PO ONE (14:15)
[2023-08-04] MEDS: MORPHINE 2 MG/ML INJ. SYRINGE IVP PRN (18:00)
[2023-08-04] MEDS ORDERED: POTASSIUM ACETATE IV SCH (21:00)
[2023-08-04] MEDS ORDERED: [UNRECOGNIZED DRUG - OTHER] IV SCH (21:00)
[2023-08-04] MEDS ORDERED: SODIUM CHLORIDE IV SCH (21:00)
[2023-08-04] MEDS ORDERED: TPN PERIPHERAL IV SCH (21:00)
[2023-08-05] MEDS ORDERED: amLODIPine BESYLATE 10 MG TABLET PO SCH (09:00)
== END 2023-08-04 19:30 | disposition hospice, home (50) | DRG 871 ==
LOC: SED 14:07 → STU 17:05 → SIC 07-13 09:35
PROVIDERS: ADMIT Preventive Medicine Preventive Medicine/Occupational Environmental Medicine; ATTEND Preventive Medicine Preventive Medicine/Occupational Environmental Medicine
PROC: 5A09357 Assistance with Respiratory Ventilation, Less than 24 Consecutive Hours, Continuous Positive Airway Pressure (ICD-10-PCS; 2023-07-12)
PROC: 5A09357 Assistance with Respiratory Ventilation, Less than 24 Consecutive Hours, Continuous Positive Airway Pressure (ICD-10-PCS; 2023-07-13)
PROC: 5A09357 Assistance with Respiratory Ventilation, Less than 24 Consecutive Hours, Continuous Positive Airway Pressure (ICD-10-PCS; 2023-07-14)
PROC: 5A09357 Assistance with Respiratory Ventilation, Less than 24 Consecutive Hours, Continuous Positive Airway Pressure (ICD-10-PCS; 2023-07-15)
PROC: 3E0336Z Introduction of Nutritional Substance into Peripheral Vein, Percutaneous Approach (ICD-10-PCS; principal; 2023-07-16)
PROC: 5A0935A Assistance with Respiratory Ventilation, Less than 24 Consecutive Hours, High Flow/Velocity Cannula (ICD-10-PCS; 2023-07-23)
PROC: 05HY33Z Insertion of Infusion Device into Upper Vein, Percutaneous Approach (ICD-10-PCS; 2023-07-23)
PROC: 5A0945A Assistance with Respiratory Ventilation, 24-96 Consecutive Hours, High Flow/Velocity Cannula (ICD-10-PCS; 2023-07-31)
PROC: 30233N1 Transfusion of Nonautologous Red Blood Cells into Peripheral Vein, Percutaneous Approach (ICD-10-PCS; 2023-08-04)
DX: A41.9 Sepsis, unspecified organism (principal); E43 Unspecified severe protein-calorie malnutrition; J96.01 Acute respiratory failure with hypoxia; I50.23 Acute on chronic systolic (congestive) heart failure; J15.9 Unspecified bacterial pneumonia; R65.21 Severe sepsis with septic shock; N17.9 Acute kidney failure, unspecified; E87.1 Hypo-osmolality and hyponatremia; G93.40 Encephalopathy, unspecified; I13.0 Hypertensive heart and chronic kidney disease with heart failure and stage 1 through stage 4 chronic kidney disease, or unspecified chronic kidney disease; I42.9 Cardiomyopathy, unspecified; K92.2 Gastrointestinal hemorrhage, unspecified; D64.9 Anemia, unspecified; Z20.822 Contact with and (suspected) exposure to COVID-19; D69.6 Thrombocytopenia, unspecified; E11.22 Type 2 diabetes mellitus with diabetic chronic kidney disease; E11.65 Type 2 diabetes mellitus with hyperglycemia; E66.9 Obesity, unspecified; E78.5 Hyperlipidemia, unspecified; E83.39 Other disorders of phosphorus metabolism; E83.42 Hypomagnesemia; E83.51 Hypocalcemia; E87.5 Hyperkalemia; E87.6 Hypokalemia; E88.09 Other disorders of plasma-protein metabolism, not elsewhere classified; I25.10 Atherosclerotic heart disease of native coronary artery without angina pectoris; I48.91 Unspecified atrial fibrillation; Y95 Nosocomial condition; Z95.5 Presence of coronary angioplasty implant and graft; Z68.37 Body mass index [BMI] 37.0-37.9, adult; Z22.321 Carrier or suspected carrier of Methicillin susceptible Staphylococcus aureus
CPT/HCPCS: 36415; 36600; 70450; 70450-TC; 70496; 70498; 71045; 76376; 76770; 80048; 80053; 80061; 80076; 82272; 82803; 82948; 82962; 83037; 83605; 83735; 83880; 84100; 84478; 84484; 85025; 85610; 85651; 85730; 86886; 86900; 86901; 86920; 87040; 87081; 92610-GN; 93005; 93306; 94640; 94660; 94760; 95816; 99285; C9113; G0378; J0282; J0360; J0456; J0610; J0692; J0696; J1200; J1630; J1815; J1940; J2020; J2060; J2270; J2405; J3475; J3480; J3490; J7050; J7060; J7131; P9021